=== PATIENT | female | born 1945 | race Caucasian/White ===

== ENCOUNTER 2020-11-14 13:25 | Emergency (ER) | payer MEDICARE, BC ==
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
[2020-11-14 14:24] LABS: Absolute Neutrophil Ct (ANC) 3.28 (1.4-6.9); BASOPHIL % 0.2 % (0.0-0.4); Basophil (Absolute #) 0.01 (0-0.4); Eosinophil % 1.9 % (0.00-5.0); Eosinophil (Absolute #) 0.11 (0-0.5); Hematocrit 40.8 % (35-47); Hemoglobin 12.6 gm/dl (12.0-16.0); Lymphocyte (Absolute #) 1.69 (1.0-4.6); Lymphocytes % 29.5 % (24.0-44.0); Mean Cell Volume 98.1 fl (78-100); Mean Corpuscular Hemoglobin 30.3 pg (26-32); Mean Corpuscular Hgb Concent. 30.9 g/dl (32-36); Mean Platelet Volume 10.2 fl (7.5-11.0); Monocyte (Absolute #) 0.63 (0.0-1.3); Neutrophil % 57.4 % (36.0-66.0); Platelet Count 287 K/mm3 (150-450); Red Blood Count 4.16 M/mm3 (4.1-5.4); Red Cell Distribution Width 14.1 % (11.5-14.0); White Blood Count 5.7 K/mm3 (4.0-10.5)
[2020-11-14 14:26] LABS: Appearance SLIGHTLY CLOUDY (CLEAR); Bilirubin NEGATIVE (NEGATIVE); Blood NEGATIVE Ery/ul (0-5); Epithelial Cells RARE /HPF (FEW); Glucose NEGATIVE (NEGATIVE); Ketones NEGATIVE (NEGATIVE); Leukocyte Esterase NEGATIVE (NEGATIVE); Mucus SLIGHT /HPF (NEGATIVE); Nitrite NEGATIVE (NEGATIVE); Protein,Urine Dip NEGATIVE (Negative); Urobilinogen NEGATIVE mg/dL (0-1)
--- NOTE | 2020-11-14 14:33 | XRAY ---
Indication: Confusion. Multiple contiguous axial images obtained through the head without contrast. Comparison: None Age-appropriate global atrophy and mild/moderate periventricular degenerative micro-ischemia bilaterally. No acute intracranial hemorrhage, abnormal extra-axial fluid collection, or mass effect. Fourth ventricle is midline without hydrocephalus. Bony calvarium intact. Visualized paranasal sinuses and mastoid air cells are clear. Impression: Nonacute senile brain.
[2020-11-14 14:46] LABS: ALKALINE PHOSPHATASE 64 U/L (38-126); ANION GAP 12.4 MEQ/L (5-15); BLOOD UREA NITROGEN 16 mg/dL (7-17); CHLORIDE 103 mmol/L (98-107); Calcium 9.2 mg/dL (8.4-10.2); Carbon Dioxide 26 mmol/L (22-30); Creatinine 1 0.58 mg/dL (0.52-1.04); EST GLOMERULAR FILTRATION RATE > 60.0 ML/MIN; Glucose 97 mg/dL (74-106); Potassium 4.3 mmol/L (3.5-5.1); SGOT/AST 35 U/L (14-36); SGPT/ALT 16 U/L (0-35); SODIUM 137 mmol/L (137-145); Total Protein 7.4 g/dL (6.3-8.2)
[2020-11-14 14:47] LABS: ACETAMINOPHEN < 10 ug/ml (10-30); ETHYL ALCOHOL < 10 mg/dL (0-10); SALICYLATE < 1.0 mg/dL (2-20)
[2020-11-14 14:56] LABS: Amphetamine,Urine NEGATIVE (NEGATIVE); Barbiturate,Urine NEGATIVE (NEGATIVE); Benzodiazepine,Urine NEGATIVE (NEGATIVE); Cocaine,Urine NEGATIVE (NEGATIVE); Methadone,Urine NEGATIVE (NEGATIVE); Opiate,Urine NEGATIVE (NEGATIVE); PCP,Urine NEGATIVE (NEGATIVE); THC,Urine NEGATIVE (NEGATIVE)
[2020-11-14 15:02] VITALS: O2SAT 98
[2020-11-14 17:10] VITALS: BP 127/66; PULSE 58
--- NOTE | 2020-11-15 14:09 | XRAY ---
Indication: Cough and confusion. Comparison: None Portable chest demonstrates minimal left base fibrosis/scarring and tiny right base calcified granuloma. Remaining heart and lungs unremarkable. Bony thorax intact with mild osteopenia and degenerative changes. Impression: Nonacute chest with chronic features.
== END 2020-11-14 19:08 | disposition home or self-care (01) ==
LOC: ED 13:25
DX: R45.6 Violent behavior (principal); R46.89 Other symptoms and signs involving appearance and behavior
CPT/HCPCS: 36000; 36415; 70450; 71045; 80053; 80307; 81001; 82140; 85025; 93005; 99284; G0480

== ENCOUNTER 2021-03-01 23:24 | Emergency (ER) | payer MEDICARE, BC ==
[2021-03-02 00:01] LABS: Absolute Neutrophil Ct (ANC) 6.98 (1.4-6.9); BASOPHIL % 0.2 % (0.0-0.4); Basophil (Absolute #) 0.02 (0-0.4); Eosinophil % 1.2 % (0.00-5.0); Eosinophil (Absolute #) 0.12 (0-0.5); Hematocrit 40.1 % (35-47); Hemoglobin 12.6 gm/dl (12.0-16.0); Lymphocyte (Absolute #) 1.92 (1.0-4.6); Lymphocytes % 19.5 % (24.0-44.0); Mean Corpuscular Hemoglobin 30.8 pg (26-32); Mean Corpuscular Hgb Concent. 31.4 g/dl (32-36); Monocyte (Absolute #) 0.83 (0.0-1.3); Monocytes % 8.4 % (0.0-12.0); Neutrophil % 70.7 % (36.0-66.0); Platelet Count 258 K/mm3 (150-450); Red Blood Count 4.09 M/mm3 (4.1-5.4); Red Cell Distribution Width 13.9 % (11.5-14.0); White Blood Count 9.9 K/mm3 (4.0-10.5)
[2021-03-02 00:09] VITALS: O2SAT 98
[2021-03-02 00:10] LABS: INR 0.97 (0.8-3.0); PROTIME 11.5 SECONDS (9.4-12.5)
[2021-03-02 00:13] LABS: PTT 35.1 SECONDS (25.1-36.5)
[2021-03-02 00:14] LABS: ALBUMIN 4.1 g/dL (3.5-5.0); ALKALINE PHOSPHATASE 88 U/L (38-126); ANION GAP 10.9 MEQ/L (5-15); BLOOD UREA NITROGEN 19 mg/dL (7-17); CHLORIDE 105 mmol/L (98-107); Carbon Dioxide 29 mmol/L (22-30); EST GLOMERULAR FILTRATION RATE > 60.0 ML/MIN; Glucose 114 mg/dL (74-106); Potassium 4.2 mmol/L (3.5-5.1); SGOT/AST 30 U/L (14-36); SGPT/ALT 18 U/L (0-35); SODIUM 140 mmol/L (137-145); Total Protein 7.5 g/dL (6.3-8.2)
--- NOTE | 2021-03-02 00:32 | ERPHSYRPT ---
- History of Present Illness Time Seen by Provider: 03/01/21 23:27 Source: patient, family Exam Limitations: clinical condition Physician History: 76 years old female not on any medications is brought in the ER with chief complaint of altered mental status/slurring of speech noticed by granddaughter at 8 PM when she called her. Last well-known is around 4 PM. Patient has been reported she was talking to self before her granddaughter called. Patient walked in the ER, awake alert but confused and following only few commands. She has some bruise on the right forehead but no known history of fall reported. Patient is moving all 4 extremities. History is limited. Time of Onset/Last Time Seen Normal: 1600 Timing/Duration: hour(s), constant, worse Severity: moderate Character of Deficits: impaired speech Baseline/Normal Cognition: alert oriented x 3 Current Cognition: alert but confused Associated Symptoms: slurred speech, No seizures Allergies/Adverse Reactions: No Known Drug Allergies Allergy (Unverified 03/01/21 23:42) Home Medications: No Reportable Medications [No Reported Medications] 11/14/20 [History] Hx Influenza Vaccination/Date Given: No Hx Pneumococcal Vaccination/Date Given: No Travel Risk - Vaccine Status Have you recieved a Covid-19 vaccination: No - Review of Systems All Other Systems: Unable due to condition - Past Medical History Pertinent Past Medical History: No Other Medical History: skin ca 2020 - Past Surgical History Past Surgical History: No Other Surgical History: skin ca removal - Social History Smoking Status: Never smoker Exposure to second hand smoke: No Drug Use: none Patient Lives Alone: No - Nursing Vital Signs Nursing Vital Signs: Initial Vital Signs Pulse Rate 66 03/01/21 23:24 Respiratory Rate 18 03/01/21 23:24 Blood Pressure 164/85 03/01/21 23:24 O2 Sat by Pulse Oximetry 98 03/01/21 23:24 Pain Scale Pain Intensity 0 - [place] Coma Scale Best Eye Response ([place]): (4) open spontaneously Best Verbal Response ([place]): (4) confused conversation Best Motor Response ([place]): (6) obeys commands [place] Total: 14 - Physical Exam General Appearance: no apparent distress, alert Eye Exam: bilateral eye: normal inspection, PERRL, abnormal EOM Ears, Nose, Throat Exam: normal ENT inspection, TMs normal, pharynx normal, moist mucous membranes Neck Exam: normal inspection, non-tender, supple, full range of motion Respiratory: normal breath sounds, lungs clear Cardiovascular: regular rate/rhythm, normal heart sounds Gastrointestinal: soft, normal bowel sounds Extremity Exam: normal range of motion Mental Status: alert, disoriented to person, disoriented to place, 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 Exam: normal hearing, PERRL, No normal speech, No facial asymmetry DTR: bicep (R): 3+, bicep (L): 2+, knee (R): 3+, knee (L): 2+ Skin Exam: normal color SpO2 Interpretation: normal SpO2: 98 O2 Delivery: Room Air - Course EKG Interpreted by Me: RATE (61), Sinus Rhythm, NORMAL AXIS, NORMAL INTERVALS, NORMAL QRS Ordered Tests: Medication Summary Discontinued Medications Generic Name Dose Route Start Last Admin Trade Name Randyq PRN Reason Stop Dose Admin Sodium Chloride 1,000 mls @ 100 mls/hr 03/02/21 01:30 03/02/21 01:32 Sodium Chloride 0.9% 1000 Ml IV 04/01/21 01:29 100 mls/hr .Q10H PHAN Administration Sodium Chloride Confirm 03/02/21 01:31 Sodium Chloride 0.9% 1000 Ml Administered 03/02/21 01:32 Dose 1,000 mls @ ud .ROUTE .[facility] Lab/Rad Data: Laboratory Result Diagrams 03/01/21 23:58 03/01/21 23:58 Laboratory Results 03/02/21 03/01/21 03/01/21 Range/Units 00:10 23:58 23:58 WBC (4.0-10.5) K/mm3 RBC (4.1-5.4) M/mm3 Hgb (12.0-16.0) gm/dl Hct (35-47) % MCV (78-100) fl MCH (26-32) pg MCHC (32-36) g/dl RDW (11.5-14.0) % Plt Count (150-450) K/mm3 MPV (7.5-11.0) fl Gran % (36.0-66.0) % Eos # (Auto) (0-0.5) Absolute Lymphs (auto) (1.0-4.6) Absolute Monos (auto) (0.0-1.3) Lymphocytes % (24.0-44.0) % Monocytes % (0.0-12.0) % Eosinophils % (0.00-5.0) % Basophils % (0.0-0.4) % Absolute Granulocytes (1.4-6.9) Basophils # (0-0.4) PT 11.5 (9.4-12.5) SECONDS INR 0.97 (0.8-3.0) APTT 35.1 (25.1-36.5) SECONDS Sodium (137-145) mmol/L Potassium (3.5-5.1) mmol/L Chloride (98-107) mmol/L Carbon Dioxide (22-30) mmol/L Anion Gap (5-15) MEQ/L BUN (7-17) mg/dL Creatinine (0.52-1.04) mg/dL Estimated GFR ML/MIN Glucose (74-106) mg/dL POC Glucometer (74 to 106) mg/dL Calcium (8.4-10.2) mg/dL Total Bilirubin (0.2-1.3) mg/dL AST (14-36) U/L ALT (0-35) U/L Alkaline Phosphatase (38-126) U/L Troponin I < 0.012 (0.000-0.034) ng/mL Serum Total Protein (6.3-8.2) g/dL Albumin (3.5-5.0) g/dL Urine Color YELLOW (YELLOW) Urine Appearance SLIGHTLY CLOUDY (CLEAR) Urine pH 5.0 (5-6) Ur Specific [place] 1.027 (1.005-1.025) Urine Protein NEGATIVE (Negative) Urine Ketones NEGATIVE (NEGATIVE) Urine Blood NEGATIVE (0-5) Shaji/ul Urine Nitrite NEGATIVE (NEGATIVE) Urine Bilirubin NEGATIVE (NEGATIVE) Urine Urobilinogen NEGATIVE (0-1) mg/dL Ur Leukocyte Esterase NEGATIVE (NEGATIVE) Urine WBC (Auto) 0-2 (0-5) /HPF Urine RBC (Auto) 3-5 (0-2) /HPF U Epithel Cells (Auto) RARE (FEW) /HPF Urine Bacteria (Auto) NONE SEEN (NEGATIVE) /HPF Urine Mucus (Auto) MANY (NEGATIVE) /HPF Urine Culture Reflexed NO (NO) Urine Glucose NEGATIVE (NEGATIVE) mg/dL 03/01/21 03/01/2121 Range/Units 23:58 23:58 23:40 WBC 9.9 (4.0-10.5) K/mm3 RBC 4.09 L (4.1-5.4) M/mm3 Hgb 12.6 (12.0-16.0) gm/dl Hct 40.1 (35-47) % MCV 98.0 (78-100) fl MCH 30.8 (26-32) pg MCHC 31.4 L (32-36) g/dl RDW 13.9 (11.5-14.0) % Plt Count 258 (150-450) K/mm3 MPV 10.0 (7.5-11.0) fl Gran % 70.7 H (36.0-66.0) % Eos # (Auto) 0.12 (0-0.5) Absolute Lymphs (auto) 1.92 (1.0-4.6) Absolute Monos (auto) 0.83 (0.0-1.3) Lymphocytes % 19.5 L (24.0-44.0) % Monocytes % 8.4 (0.0-12.0) % Eosinophils % 1.2 (0.00-5.0) % Basophils % 0.2 (0.0-0.4) % Absolute Granulocytes 6.98 H (1.4-6.9) Basophils # 0.02 (0-0.4) PT (9.4-12.5) SECONDS INR (0.8-3.0) APTT (25.1-36.5) SECONDS Sodium 140 (137-145) mmol/L Potassium 4.2 (3.5-5.1) mmol/L Chloride 105 (98-107) mmol/L Carbon Dioxide 29 (22-30) mmol/L Anion Gap 10.9 (5-15) MEQ/L BUN 19 H (7-17) mg/dL Creatinine 0.60 (0.52-1.04) mg/dL Estimated GFR > 60.0 ML/MIN Glucose 114 H (74-106) mg/dL POC Glucometer 110 H (74 to 106) mg/dL Calcium 9.0 (8.4-10.2) mg/dL Total Bilirubin 0.40 (0.2-1.3) mg/dL AST 30 (14-36) U/L ALT 18 (0-35) U/L Alkaline Phosphatase 88 (38-126) U/L Troponin I (0.000-0.034) ng/mL Serum Total Protein 7.5 (6.3-8.2) g/dL Albumin 4.1 (3.5-5.0) g/dL Urine Color (YELLOW) Urine Appearance (CLEAR) Urine pH (5-6) Ur Specific [place] (1.005-1.025) Urine Protein (Negative) Urine Ketones (NEGATIVE) Urine Blood (0-5) Shaji/ul Urine Nitrite (NEGATIVE) Urine Bilirubin (NEGATIVE) Urine Urobilinogen (0-1) mg/dL Ur Leukocyte Esterase (NEGATIVE) Urine WBC (Auto) (0-5) /HPF Urine RBC (Auto) (0-2) /HPF U Epithel Cells (Auto) (FEW) /HPF Urine Bacteria (Auto) (NEGATIVE) /HPF Urine Mucus (Auto) (NEGATIVE) /HPF Urine Culture Reflexed (NO) Urine Glucose (NEGATIVE) mg/dL - Progress Progress: unchanged Progress Note: 03/02/21 00:40 76 years old is evaluated for confusion, difficulties speech. CT head showed subarachnoid bleed and intraparenchymal bleed the left parietal lobe with surrounding edema and without any midline shift. [facility] is called for transfer. 03/02/21 02:04 Patient remained stable, awake alert and blood pressure improved to [address] Bunn neurosurgery, reviewed history, exam and CT findings, patient is accepted for transfer. Plan discussed with family who understand and agree with it. 03/02/21 02:[address] Other ( [facility]) Counseled pt/family regarding: lab results, diagnosis, rad results - Departure Departure Disposition: Transfer Clinical Impression: Intracranial hemorrhage Condition: Serious Critical Care Time: Yes Critical Care Time(excluding separately billable procedures): Critical 30-74 mins Referrals: KING SCHROEDER MD [Primary Care Provider] -
[2021-03-02 00:35] LABS: Appearance SLIGHTLY CLOUDY (CLEAR); Bilirubin NEGATIVE (NEGATIVE); Blood NEGATIVE Ery/ul (0-5); Epithelial Cells RARE /HPF (FEW); Glucose NEGATIVE (NEGATIVE); Ketones NEGATIVE (NEGATIVE); Leukocyte Esterase NEGATIVE (NEGATIVE); Mucus MANY /HPF (NEGATIVE); Nitrite NEGATIVE (NEGATIVE); Protein,Urine Dip NEGATIVE (Negative); Specific Gravity 1.027 (1.005-1.025); Urobilinogen NEGATIVE mg/dL (0-1); WBC 0-2 /HPF (0-5)
[2021-03-02 00:36] LABS: Bacteria NONE SEEN /HPF (NEGATIVE)
[2021-03-02] MEDS ORDERED: Sodium Chloride 0.9% 1000 ML 1,000 ML IV SCH (01:30)
[2021-03-02] MEDS ORDERED: Sodium Chloride 0.9% 1000 ML 1,000 ML ONE (01:31)
[2021-03-02 02:07] VITALS: BP 175/70; PULSE 63
--- NOTE | 2021-03-02 06:53 | XRAY ---
Indication: Stroke. Multiple contiguous axial images obtained through the head without contrast. Comparison: November 14, 2020 Again age-appropriate global atrophy and moderate periventricular degenerative micro-ischemia. New large left temporoparietal acute parenchymal hemorrhage measuring at least 3.9 x 2.2 x 3.7 cm. Additional new small subarachnoid hemorrhage seen along the left sylvian fissure. No significant mass effect/midline shift. Fourth ventricle is midline without hydrocephalus. Bony calvarium intact. Visualized paranasal sinuses and mastoid air cells are clear. Impression: 1. New large left temporoparietal acute parenchymal hemorrhage and small subarachnoid acute hemorrhage. 2. Atrophy and degenerative micro-ischemia within normal limits for patient's age. Comment: Preliminary interpretation made by [facility]. No critical discrepancy.
== END 2021-03-02 03:00 | disposition short-term general hospital (02) ==
LOC: ED 23:24
DX: I62.9 Nontraumatic intracranial hemorrhage, unspecified (principal); R41.82 Altered mental status, unspecified; S00.83XA Contusion of other part of head, initial encounter; R47.81 Slurred speech
CPT/HCPCS: 36000; 36415; 51702; 70450; 80053; 81001; 82947; 84484; 85025; 85610; 85730; 93005; 93041; 96360; 96361; 99285; 99291

== ENCOUNTER 2021-06-12 03:05 | Observation (INO) | payer MEDICARE, BC ==
[2021-06-12] MEDS ORDERED: Sodium Chloride 0.9% 1000 ML 1,000 ML IV SCH (03:15)
[2021-06-12 03:28] LABS: Absolute Neutrophil Ct (ANC) 4.28 (1.4-6.9); Basophil (Absolute #) 0.04 (0-0.4); Eosinophil % 2.5 % (0.00-5.0); Eosinophil (Absolute #) 0.19 (0-0.5); Hematocrit 35.2 % (35-47); Hemoglobin 10.8 gm/dl (12.0-16.0); Lymphocyte (Absolute #) 2.45 (1.0-4.6); Lymphocytes % 31.7 % (24.0-44.0); Mean Cell Volume 100.6 fl (78-100); Mean Corpuscular Hemoglobin 30.9 pg (26-32); Mean Corpuscular Hgb Concent. 30.7 g/dl (32-36); Mean Platelet Volume 9.7 fl (7.5-11.0); Monocyte (Absolute #) 0.78 (0.0-1.3); Monocytes % 10.1 % (0.0-12.0); Neutrophil % 55.2 % (36.0-66.0); Platelet Count 290 K/mm3 (150-450); Red Cell Distribution Width 14.9 % (11.5-14.0); White Blood Count 7.7 K/mm3 (4.0-10.5)
[2021-06-12 03:46] LABS: ALBUMIN 3.8 g/dL (3.5-5.0); ANION GAP 10.8 MEQ/L (5-15); BILIRUBIN,TOTAL 0.5 mg/dL (0.2-1.3); Calcium 9.4 mg/dL (8.4-10.2); Creatinine 1 1.37 mg/dL (0.52-1.04); EST GLOMERULAR FILTRATION RATE 39.6 ML/MIN; Potassium 4.1 mmol/L (3.5-5.1); Total Protein 6.7 g/dL (6.3-8.2)
[2021-06-12] MEDS ORDERED: Sodium Chloride 0.9% 1000 ML 1,000 ML ONE (04:21)
--- NOTE | 2021-06-12 04:39 | ERPHSYRPT ---
- History of Present Illness Time Seen by Provider: 06/12/21 03:30 Source: patient Exam Limitations: no limitations Patient Subjective Stated Complaint: per ems, pt has been increasingly confused at home, has been combative with family. family states that pt has been out of some of her medications for a few days. family was unable to tell ems which medications pt was out of. Triage Nursing Assessment: pt awake and alert. not oriented, to time, place, or person. pt arrive per ambulance and tranfers to stretcher with complete assist of 3. respirations nonlabored with lungs cta. skin warm and dry. pupils equal and reactive. bilat upper and lower extr strength equal. pt does not follow commands well. Physician History: Patient is a 76-year-old female presents to our ED via EMS for evaluation of combativeness. EMS reports patient has been off of her medication for approximately 3 days. She has been off of senna Norvasc and amantadine. She has been off of medications as her primary care provider is out of town. Family also reports patient has a history of head bleed. Although no reports of trauma. No fever. No chest pain or shortness of breath reported. Patient's symptoms are mild to moderate in intensity. No specific worsening or improving factors. Patient has dementia and is a poor historian. She is unable to provide significant information towards this HPI Timing/Duration: today Severity: moderate Modifying Factors: Improves With: nothing Associated Symptoms: denies symptoms Allergies/Adverse Reactions: No Known Drug Allergies Allergy (Unverified 03/01/21 23:42) Home Medications: Amantadine HCl [Amantadine] 100 mg PO BID 06/12/21 [History] Amlodipine Besylate [Norvasc] 10 mg PO DAILY 06/12/21 [History] Sennosides [Senna] 8.6 mg PO DAILY 06/12/21 [History] Hx Tetanus, Diphtheria Vaccination/Date Given: No (unsure) Hx Influenza Vaccination/Date Given: No Hx Pneumococcal Vaccination/Date Given: No Travel Risk - International Travel Have you traveled outside of the country in past 3 weeks: No - Coronavirus Screening Are you exhibiting any of the following symptoms?: No Close contact with a COVID-19 positive Pt in past 14-21 Days: No - Vaccine Status Have you recieved a Covid-19 vaccination: No - Review of Systems All Other Systems: Unable due to condition - Past Medical History Pertinent Past Medical History: No Neurological History: Dementia Other Medical History: skin ca 2020, prolapsed uterus. hx brain bleed in march - Past Surgical History Past Surgical History: No Other Surgical History: skin ca removal - Social History Smoking Status: Never smoker Exposure to second hand smoke: No Drug Use: none Patient Lives Alone: No - Nursing Vital Signs Nursing Vital Signs: Initial Vital Signs Temperature 97.6 F 06/12/21 03:21 Pulse Rate 54 L 06/12/21 03:21 Respiratory Rate 16 06/12/21 03:21 Blood Pressure 126/45 06/12/21 03:21 O2 Sat by Pulse Oximetry 100 06/12/21 03:21 Pain Scale Pain Intensity 0 - Physical Exam General Appearance: no apparent distress, alert Eye Exam: PERRL/EOMI, eyes nml inspection Ears, Nose, Throat Exam: normal ENT inspection, TMs normal, pharynx normal, moist mucous membranes Neck Exam: normal inspection, non-tender, supple, full range of motion Respiratory Exam: normal breath sounds, lungs clear, airway intact, No respiratory distress Cardiovascular Exam: regular rate/rhythm, normal heart sounds, normal peripheral pulses Gastrointestinal/Abdomen Exam: soft, normal bowel sounds, No tenderness, No mass Back Exam: normal inspection, normal range of motion, No CVA tenderness, No vertebral tenderness Extremity Exam: normal inspection, normal range of motion, pelvis stable Neurologic Exam: alert, oriented x 3, cooperative, normal mood/affect, sensation nml, No motor deficits Skin Exam: normal color, warm, dry, No rash Lymphatic Exam: No adenopathy SpO2 Interpretation: normal SpO2: 100 O2 Delivery: Room Air - Course Nursing assessment & vital signs reviewed: Yes EKG Interpreted by Me: RATE (65), Sinus Rhythm, Left Bundle Branch Block - CT Exams Head CT Interpretation: Tele-radiologist Report (No acute intracranial abnormality. Generalized brain volume loss. Left temporal encephalomalacia with regional lateral ventricular ex vacuo dilation. No mass-effect or midline shift. No acute intracranial hemorrhage. No fracture. Patchy white matter hypodensities are nonspecific but may be seen in s) Ordered Tests: Active Orders 24 hr Category Date Time Status EKG-ER Only STAT Care 06/12/21 03:08 Active IV Insertion STAT Care 06/12/21 03:08 Active HEAD WITHOUT CONTRAST [CT] Stat Exams 06/12/21 03:31 Taken CBC W DIFF Stat Lab 06/12/21 03:23 Completed CMP Stat Lab 06/12/21 03:23 Completed CULTURE,URINE Stat Lab 06/12/21 04:58 Received TROPONIN Q3H Lab 06/12/21 03:23 Completed TROPONIN Q3H Lab 06/12/21 05:45 Completed TROPONIN Q3H Lab 06/12/21 09:15 Ordered TROPONIN Q3H Lab 06/12/21 12:15 Ordered TROPONIN Q3H Lab 06/12/21 15:15 Ordered UA W/RFX UR CULTURE Stat Lab 06/12/21 04:58 Completed Transfer Order Routine Transfer 06/12/21 Ordered Medication Summary Generic Name Dose Route Start Last Admin Trade Name Freq PRN Reason Stop Dose Admin Sodium Chloride 1,000 mls @ 100 mls/hr 06/12/21 03:15 06/12/21 04:24 Sodium Chloride 0.9% 1000 Ml IV 07/12/21 03:14 100 mls/hr .Q10H PHAN Administration Discontinued Medications Generic Name Dose Route Start Last Admin Trade Name Freq PRN Reason Stop Dose Admin Aspirin 324 mg 06/12/21 05:17 06/12/21 05:49 Aspirin 81 Mg Tab.Chew PO 06/12/21 05:18 324 mg STAT ONE Administration Aspirin Confirm 06/12/21 05:48 Aspirin 81 Mg Tab.Chew Administered 06/12/21 05:49 Dose 324 mg .ROUTE .STK-MED ONE Ceftriaxone Sodium/Dextrose 1 g in 50 mls @ 100 mls/hr 06/12/21 05:51 06/12/21 06:08 Rocephin 1 Gm-D5w 50 Ml Bag IV 06/12/21 06:20 100 ml/hr STAT STA 100 mls/hr Administration Ceftriaxone Sodium/Dextrose Confirm 06/12/21 05:58 Rocephin 1 Gm-D5w 50 Ml Bag Administered 06/12/21 05:59 Dose 1 g in 50 mls @ ud IV .STK-MED ONE Lab/Rad Data: Laboratory Result Diagrams 06/12/21 03:23 06/12/21 03:23 Laboratory Results 06/12/21 06/12/21 06/12/21 Range/Units 05:55 05:45 04:58 WBC (4.0-10.5) K/mm3 RBC (4.1-5.4) M/mm3 Hgb (12.0-16.0) gm/dl Hct (35-47) % MCV (78-100) fl MCH (26-32) pg MCHC (32-36) g/dl RDW (11.5-14.0) % Plt Count (150-450) K/mm3 MPV (7.5-11.0) fl Gran % (36.0-66.0) % Eos # (Auto) (0-0.5) Absolute Lymphs (auto) (1.0-4.6) Absolute Monos (auto) (0.0-1.3) Lymphocytes % (24.0-44.0) % Monocytes % (0.0-12.0) % Eosinophils % (0.00-5.0) % Basophils % (0.0-0.4) % Absolute Granulocytes (1.4-6.9) Basophils # (0-0.4) Sodium (137-145) mmol/L Potassium (3.5-5.1) mmol/L Chloride (98-107) mmol/L Carbon Dioxide (22-30) mmol/L Anion Gap (5-15) MEQ/L BUN (7-17) mg/dL Creatinine (0.52-1.04) mg/dL Estimated GFR ML/MIN Glucose (74-106) mg/dL Calcium (8.4-10.2) mg/dL Total Bilirubin (0.2-1.3) mg/dL AST (14-36) U/L ALT (0-35) U/L Alkaline Phosphatase (38-126) U/L Troponin I < 0.012 (0.000-0.034) ng/mL Serum Total Protein (6.3-8.2) g/dL Albumin (3.5-5.0) g/dL Urine Color YELLOW (YELLOW) Urine Appearance SLIGHTLY CLOUDY (CLEAR) Urine pH 5.0 (5-6) Ur Specific [place] 1.020 (1.005-1.025) Urine Protein NEGATIVE (Negative) Urine Ketones NEGATIVE (NEGATIVE) Urine Blood NEGATIVE (0-5) Shaji/ul Urine Nitrite POSITIVE (NEGATIVE) Urine Bilirubin NEGATIVE (NEGATIVE) Urine Urobilinogen NEGATIVE (0-1) mg/dL Ur Leukocyte Esterase MODERATE (NEGATIVE) Urine WBC (Auto) 26-50 (0-5) /HPF Urine RBC (Auto) 0-2 (0-2) /HPF U Epithel Cells (Auto) RARE (FEW) /HPF Urine Bacteria (Auto) RARE (NEGATIVE) /HPF Urine Mucus (Auto) SLIGHT (NEGATIVE) /HPF Urine Culture Reflexed YES (NO) Urine Glucose NEGATIVE (NEGATIVE) mg/dL Influenza Type A Ag NEGATIVE (NEGATIVE) Influenza Type B Ag NEGATIVE (NEGATIVE) RSV (PCR) NEGATIVE (Negative) SARS-CoV-2 (PCR) NEGATIVE (NEGATIVE) 06/12/21 06/12/21 06/12/21 Range/Units 03:23 03:23 03:23 WBC 7.7 (4.0-10.5) K/mm3 RBC 3.50 L (4.1-5.4) M/mm3 Hgb 10.8 L (12.0-16.0) gm/dl Hct 35.2 (35-47) % MCV 100.6 H (78-100) fl MCH 30.9 (26-32) pg MCHC 30.7 L (32-36) g/dl RDW 14.9 H (11.5-14.0) % Plt Count 290 (150-450) K/mm3 MPV 9.7 (7.5-11.0) fl Gran % 55.2 (36.0-66.0) % Eos # (Auto) 0.19 (0-0.5) Absolute Lymphs (auto) 2.45 (1.0-4.6) Absolute Monos (auto) 0.78 (0.0-1.3) Lymphocytes % 31.7 (24.0-44.0) % Monocytes % 10.1 (0.0-12.0) % Eosinophils % 2.5 (0.00-5.0) % Basophils % 0.5 (0.0-0.4) % Absolute Granulocytes 4.28 (1.4-6.9) Basophils # 0.04 (0-0.4) Sodium 139 (137-145) mmol/L Potassium 4.1 (3.5-5.1) mmol/L Chloride 103 (98-107) mmol/L Carbon Dioxide 29 (22-30) mmol/L Anion Gap 10.8 (5-15) MEQ/L BUN 29 H (7-17) mg/dL Creatinine 1.37 H (0.52-1.04) mg/dL Estimated GFR 39.6 ML/MIN Glucose 84 (74-106) mg/dL Calcium 9.4 (8.4-10.2) mg/dL Total Bilirubin 0.50 (0.2-1.3) mg/dL AST 22 (14-36) U/L ALT 18 (0-35) U/L Alkaline Phosphatase 68 (38-126) U/L Troponin I < 0.012 (0.000-0.034) ng/mL Serum Total Protein 6.7 (6.3-8.2) g/dL Albumin 3.8 (3.5-5.0) g/dL Urine Color (YELLOW) Urine Appearance (CLEAR) Urine pH (5-6) Ur Specific [place] (1.005-1.025) Urine Protein (Negative) Urine Ketones (NEGATIVE) Urine Blood (0-5) Shaji/ul Urine Nitrite (NEGATIVE) Urine Bilirubin (NEGATIVE) Urine Urobilinogen (0-1) mg/dL Ur Leukocyte Esterase (NEGATIVE) Urine WBC (Auto) (0-5) /HPF Urine RBC (Auto) (0-2) /HPF U Epithel Cells (Auto) (FEW) /HPF Urine Bacteria (Auto) (NEGATIVE) /HPF Urine Mucus (Auto) (NEGATIVE) /HPF Urine Culture Reflexed (NO) Urine Glucose (NEGATIVE) mg/dL Influenza Type A Ag (NEGATIVE) Influenza Type B Ag (NEGATIVE) RSV (PCR) (Negative) SARS-CoV-2 (PCR) (NEGATIVE) - Progress Progress: improved Progress Note: Patient reassessed. She is well. Patient calm and cooperative. Patient is not taking her senna. However I do not believe this is contributing to her combativeness. Patient has not taken her Norvasc. Her blood pressure while in our ED appears to be normal. Blood pressure recorded is 120/53. Patient also has not taken her amantadine. This is a medication typically used for Parkinson's disease. It is unclear whether this would be causing patient's aggressive behavior. We are currently waiting for urinalysis and EKG to be completed for final disposition. At this point the work-up reveals a mild dehydration slight elevated creatinine. Patient also has a megaloblastic anemia. RN has spoken to patient's daughter. If upon completion no indication for admission. Daughter states that she would take patient home. Patient's primary care provider is back in town. They will obtain her medications in the morning. 06/12/21 04:50 RN reports that patient has an unsteady gait. Per daughter this is not patient's baseline. The lack of patient's home medications does not explain this finding. We will admit for monitoring or further evaluation of altered mental status/unsteady gait. The onset of her symptoms is not clear. Patient would not be a candidate for tPA. 06/12/21 05:18 UA reveals urinary tract infection. A gram Rocephin ordered. Case discussed with who accepts admission to observation. Patient will be admitted as she is not functioning at her baseline and her gait is unsteady. 06/12/21 05:52 COVID test negative. Patient will be admitted to Dr. Carroll service 06/12/21 06:[address] Solange Will see patient in: hospital (observation) Counseled pt/family regarding: lab results, diagnosis, rad results - Departure Departure Disposition: Home Clinical Impression: Megaloblastic anemia, Combative behavior, Dementia, Dehydration, Elevated serum creatinine, Left bundle branch block, Unsteady gait, UTI (urinary tract infection), Noncompliance with medication regimen Condition: Stable Critical Care Time: No Referrals: KING SCHROEDER MD [Primary Care Provider] - Follow up/PCP as directed
[2021-06-12] MEDS ORDERED: BABY ASPIRIN 81 MG CHEW PO ONE (05:17)
[2021-06-12 05:46] LABS: Appearance SLIGHTLY CLOUDY (CLEAR); Bacteria RARE /HPF (NEGATIVE); Bilirubin NEGATIVE (NEGATIVE); Blood NEGATIVE Ery/ul (0-5); Epithelial Cells RARE /HPF (FEW); Glucose NEGATIVE (NEGATIVE); Ketones NEGATIVE (NEGATIVE); Leukocyte Esterase MODERATE (NEGATIVE); Mucus SLIGHT /HPF (NEGATIVE); Nitrite POSITIVE (NEGATIVE); Protein,Urine Dip NEGATIVE (Negative); RBC 0-2 /HPF (0-2); Urobilinogen NEGATIVE mg/dL (0-1); WBC 26-50 /HPF (0-5)
[2021-06-12] MEDS ORDERED: BABY ASPIRIN 81 MG CHEW ONE (05:48)
[2021-06-12] MEDS ORDERED: ROCEPHIN 1 Gm-D5w 50 ml Bag** 1 G/50 ML IVPB IV STA (05:51)
[2021-06-12] MEDS ORDERED: ROCEPHIN 1 Gm-D5w 50 ml Bag** 1 G/50 ML IVPB IV ONE (05:58)
[2021-06-12 06:35] LABS: INFLUENZA A NEGATIVE (NEGATIVE); INFLUENZA B NEGATIVE (NEGATIVE); RESPIRATORY SYNCTIAL VIRUS NEGATIVE (Negative); SARS-CoV-2 Xpert Express NEGATIVE (NEGATIVE)
[2021-06-12] MEDS ORDERED: TYLENOL 325 MG PO PRN (08:02)
[2021-06-12] MEDS ORDERED: Zofran 4 MG/2 ML VIAL IV PRN (08:02)
--- NOTE | 2021-06-12 09:22 | XRAY ---
Indication: Acute mental status change. History dementia. Multiple contiguous axial images obtained through the head without contrast. Comparison: March 02, 2021. Again age-appropriate global atrophy and moderate periventricular degenerative micro-ischemia bilaterally. Previous large left temporoparietal parenchymal hemorrhage has resolved with now remnant encephalomalacia. No acute intracranial hemorrhage, abnormal extra-axial fluid collection, or mass effect. Fourth ventricle is midline without hydrocephalus. Bony calvarium intact. Visualized paranasal sinuses and mastoid air cells are clear. Impression: Continued nonacute senile brain with new left temporoparietal encephalomalacia. Comment: Preliminary interpretation made by [facility]. No critical discrepancy.
[2021-06-12] MEDS ORDERED: MEDICATION INTERVENTION PO SCH (12:00)
[2021-06-12] MEDS: NORVASC 5 MG PO SCH (13:38)
[2021-06-12] MEDS: Colace 100 MG PO SCH ×2 (13:38→21:07)
[2021-06-12] MEDS: Vitamin B-12 500 MCG PO SCH (13:39)
[2021-06-12] MEDS: Zestril 20 MG PO SCH (13:39)
[2021-06-12] MEDS: SENOKOT 8.6 MG PO SCH (21:07)
--- NOTE | 2021-06-12 21:30 | PCM.HP ---
History of Present Illness - Chief Complaint Chief Complaint: Altered Mental Status History of Present Illness: is a 76 year old female.has been off of her medication for approximately 3 days. She has been off of senna Norvasc and amantadine. She has been off of medications as her primary care provider is out of town. Family also reports patient has a history of head bleed. Although no reports of trauma. No fever. No chest pain or shortness of breath reported. Patient's symptoms are mild to moderate in intensity. No specific worsening or improving factors. Patient has dementia and is a poor historian. - Review of Systems Constitutional: Lethargy Neurological: Irritability, Lethargy All Other Systems: Unable due to condition, Unable due to dementia Medications & Allergies Home Medications: Home Medication List Acetaminophen 325 mg [Tylenol 325 mg] 650 mg PO Q4H PRN PRN 06/12/21 [History Confirmed 06/12/21] Amantadine HCl [Amantadine] 100 mg PO BID 06/12/21 [History Confirmed 06/12/21] Amlodipine Besylate [Norvasc] 10 mg PO DAILY 06/12/21 [History Confirmed 06/12/21] Cyanocobalamin (Vitamin B-12) [Vitamin B-12] 1,000 mcg PO DAILY 06/12/21 [History Confirmed 06/12/21] Docusate Sodium [Colace] 100 mg PO BID 06/12/21 [History Confirmed 06/12/21] Lisinopril 20 mg [Zestril 20 MG] 20 mg PO DAILY 06/12/21 [History Confirmed 06/12/21] Sennosides [Senna] 8.6 mg PO HS 06/12/21 [History Confirmed 06/12/21] Allergies/Adverse Reactions: Allergies Allergy/AdvReac Type Severity Reaction Status Date / Time No Known Drug Allergies Allergy Unverified 03/01/21 23:42 - Past Medical History Past Medical History: Yes Neurological History: Dementia ENT History: No Pertinent History Cardiac History: Hypertension Respiratory History: No Pertinent History Endocrine Medical History: No Pertinent History Musculoskelatal History: No Pertinent History GI Medical History: No Pertinent History History: No Pertinent History Pyscho-Social History: No Pertinent History Reproductive Disorders: No Pertinent History Comment: skin ca 2020, prolapsed uterus. hx brain bleed in march - Past Surgical History Past Surgical History: No Neuro Surgical History: No Pertinent History Cardiac History: No Pertinent History Respiratory Surgery: No Pertinent History GI Surgical History: No Pertinent History Genitourinary Surgical Hx: No Pertinent History Musculskeletal Surgical Hx: No Pertinent History Female Surgical History: No Pertinent History Other Surgical History: skin ca removal - Social History Smoking Status: Unknown if ever smoked Exposure to second hand smoke: No Alcohol: None Drug Use: none - Physical Exam Vital Signs: Vital Signs - 24 hr Temp Pulse Resp BP Pulse Ox 06/12/21 19:59 97.8 F 72 19 136/70 100 06/12/21 17:00 76 15 99 06/12/21 13:34 97.8 F 72 19 118/47 99 06/12/21 12:00 97.1 F 78 17 142/72 92 L 06/12/21 08:34 97.9 F 71 16 142/72 100 06/12/21 07:33 79 18 140/76 99 06/12/21 07:07 100 06/12/21 06:00 60 17 136/63 99 06/12/21 05:00 56 L 20 120/62 99 06/12/21 04:07 64 16 120/53 96 06/12/21 03:21 97.6 F 54 L 16 126/45 100 General Appearance: mild distress Neurologic Exam: disoriented Eye Exam: PERRL/EOMI Ears, Nose, Throat Exam: normal ENT inspection Neck Exam: normal inspection Respiratory Exam: normal breath sounds Cardiovascular Exam: regular rate/rhythm Gastrointestinal/Abdomen Exam: soft Back Exam: normal inspection Extremity Exam: normal inspection Skin Exam: normal color Results - Labs Lab/Micro Results: Lab Results-Last 24 Hours 06/12/21 06/12/21 06/12/21 Range/Units 03:23 03:23 03:23 WBC 7.7 (4.0-10.5) K/mm3 RBC 3.50 L (4.1-5.4) M/mm3 Hgb 10.8 L (12.0-16.0) gm/dl Hct 35.2 (35-47) % MCV 100.6 H (78-100) fl MCH 30.9 (26-32) pg MCHC 30.7 L (32-36) g/dl RDW 14.9 H (11.5-14.0) % Plt Count 290 (150-450) K/mm3 MPV 9.7 (7.5-11.0) fl Gran % 55.2 (36.0-66.0) % Eos # (Auto) 0.19 (0-0.5) Absolute Lymphs (auto) 2.45 (1.0-4.6) Absolute Monos (auto) 0.78 (0.0-1.3) Lymphocytes % 31.7 (24.0-44.0) % Monocytes % 10.1 (0.0-12.0) % Eosinophils % 2.5 (0.00-5.0) % Basophils % 0.5 (0.0-0.4) % Absolute Granulocytes 4.28 (1.4-6.9) Basophils # 0.04 (0-0.4) Sodium 139 (137-145) mmol/L Potassium 4.1 (3.5-5.1) mmol/L Chloride 103 (98-107) mmol/L Carbon Dioxide 29 (22-30) mmol/L Anion Gap 10.8 (5-15) MEQ/L BUN 29 H (7-17) mg/dL Creatinine 1.37 H (0.52-1.04) mg/dL Estimated GFR 39.6 ML/MIN Glucose 84 (74-106) mg/dL Calcium 9.4 (8.4-10.2) mg/dL Total Bilirubin 0.50 (0.2-1.3) mg/dL AST 22 (14-36) U/L ALT 18 (0-35) U/L Alkaline Phosphatase 68 (38-126) U/L Troponin I < 0.012 (0.000-0.034) ng/mL Serum Total Protein 6.7 (6.3-8.2) g/dL Albumin 3.8 (3.5-5.0) g/dL Urine Color (YELLOW) Urine Appearance (CLEAR) Urine pH (5-6) Ur Specific [place] (1.005-1.025) Urine Protein (Negative) Urine Ketones (NEGATIVE) Urine Blood (0-5) Shaji/ul Urine Nitrite (NEGATIVE) Urine Bilirubin (NEGATIVE) Urine Urobilinogen (0-1) mg/dL Ur Leukocyte Esterase (NEGATIVE) Urine WBC (Auto) (0-5) /HPF Urine RBC (Auto) (0-2) /HPF U Epithel Cells (Auto) (FEW) /HPF Urine Bacteria (Auto) (NEGATIVE) /HPF Urine Mucus (Auto) (NEGATIVE) /HPF Urine Culture Reflexed (NO) Urine Glucose (NEGATIVE) mg/dL Influenza Type A Ag (NEGATIVE) Influenza Type B Ag (NEGATIVE) RSV (PCR) (Negative) SARS-CoV-2 (PCR) (NEGATIVE) 06/12/21 06/12/21 06/12/21 Range/Units 04:58 05:45 05:55 WBC (4.0-10.5) K/mm3 RBC (4.1-5.4) M/mm3 Hgb (12.0-16.0) gm/dl Hct (35-47) % MCV (78-100) fl MCH (26-32) pg MCHC (32-36) g/dl RDW (11.5-14.0) % Plt Count (150-450) K/mm3 MPV (7.5-11.0) fl Gran % (36.0-66.0) % Eos # (Auto) (0-0.5) Absolute Lymphs (auto) (1.0-4.6) Absolute Monos (auto) (0.0-1.3) Lymphocytes % (24.0-44.0) % Monocytes % (0.0-12.0) % Eosinophils % (0.00-5.0) % Basophils % (0.0-0.4) % Absolute Granulocytes (1.4-6.9) Basophils # (0-0.4) Sodium (137-145) mmol/L Potassium (3.5-5.1) mmol/L Chloride (98-107) mmol/L Carbon Dioxide (22-30) mmol/L Anion Gap (5-15) MEQ/L BUN (7-17) mg/dL Creatinine (0.52-1.04) mg/dL Estimated GFR ML/MIN Glucose (74-106) mg/dL Calcium (8.4-10.2) mg/dL Total Bilirubin (0.2-1.3) mg/dL AST (14-36) U/L ALT (0-35) U/L Alkaline Phosphatase (38-126) U/L Troponin I < 0.012 (0.000-0.034) ng/mL Serum Total Protein (6.3-8.2) g/dL Albumin (3.5-5.0) g/dL Urine Color YELLOW (YELLOW) Urine Appearance SLIGHTLY CLOUDY (CLEAR) Urine pH 5.0 (5-6) Ur Specific [place] 1.020 (1.005-1.025) Urine Protein NEGATIVE (Negative) Urine Ketones NEGATIVE (NEGATIVE) Urine Blood NEGATIVE (0-5) Shaji/ul Urine Nitrite POSITIVE (NEGATIVE) Urine Bilirubin NEGATIVE (NEGATIVE) Urine Urobilinogen NEGATIVE (0-1) mg/dL Ur Leukocyte Esterase MODERATE (NEGATIVE) Urine WBC (Auto) 26-50 (0-5) /HPF Urine RBC (Auto) 0-2 (0-2) /HPF U Epithel Cells (Auto) RARE (FEW) /HPF Urine Bacteria (Auto) RARE (NEGATIVE) /HPF Urine Mucus (Auto) SLIGHT (NEGATIVE) /HPF Urine Culture Reflexed YES (NO) Urine Glucose NEGATIVE (NEGATIVE) mg/dL Influenza Type A Ag NEGATIVE (NEGATIVE) Influenza Type B Ag NEGATIVE (NEGATIVE) RSV (PCR) NEGATIVE (Negative) SARS-CoV-2 (PCR) NEGATIVE (NEGATIVE) 06/12/21 Range/Units 09:03 WBC (4.0-10.5) K/mm3 RBC (4.1-5.4) M/mm3 Hgb (12.0-16.0) gm/dl Hct (35-47) % MCV (78-100) fl MCH (26-32) pg MCHC (32-36) g/dl RDW (11.5-14.0) % Plt Count (150-450) K/mm3 MPV (7.5-11.0) fl Gran % (36.0-66.0) % Eos # (Auto) (0-0.5) Absolute Lymphs (auto) (1.0-4.6) Absolute Monos (auto) (0.0-1.3) Lymphocytes % (24.0-44.0) % Monocytes % (0.0-12.0) % Eosinophils % (0.00-5.0) % Basophils % (0.0-0.4) % Absolute Granulocytes (1.4-6.9) Basophils # (0-0.4) Sodium (137-145) mmol/L Potassium (3.5-5.1) mmol/L Chloride (98-107) mmol/L Carbon Dioxide (22-30) mmol/L Anion Gap (5-15) MEQ/L BUN (7-17) mg/dL Creatinine (0.52-1.04) mg/dL Estimated GFR ML/MIN Glucose (74-106) mg/dL Calcium (8.4-10.2) mg/dL Total Bilirubin (0.2-1.3) mg/dL AST (14-36) U/L ALT (0-35) U/L Alkaline Phosphatase (38-126) U/L Troponin I < 0.012 (0.000-0.034) ng/mL Serum Total Protein (6.3-8.2) g/dL Albumin (3.5-5.0) g/dL Urine Color (YELLOW) Urine Appearance (CLEAR) Urine pH (5-6) Ur Specific [place] (1.005-1.025) Urine Protein (Negative) Urine Ketones (NEGATIVE) Urine Blood (0-5) Shaji/ul Urine Nitrite (NEGATIVE) Urine Bilirubin (NEGATIVE) Urine Urobilinogen (0-1) mg/dL Ur Leukocyte Esterase (NEGATIVE) Urine WBC (Auto) (0-5) /HPF Urine RBC (Auto) (0-2) /HPF U Epithel Cells (Auto) (FEW) /HPF Urine Bacteria (Auto) (NEGATIVE) /HPF Urine Mucus (Auto) (NEGATIVE) /HPF Urine Culture Reflexed (NO) Urine Glucose (NEGATIVE) mg/dL Influenza Type A Ag (NEGATIVE) Influenza Type B Ag (NEGATIVE) RSV (PCR) (Negative) SARS-CoV-2 (PCR) (NEGATIVE) - Radiology Impressions Radiology Exams & Impressions: Radiology Procedures Category Date Time Status HEAD WITHOUT CONTRAST [CT] Stat Exams 06/12/21 03:31 Completed Assessment/Plan (1) UTI (urinary tract infection) Current Visit: Yes Status: Acute Qualifiers: Urinary tract infection type: acute cystitis Hematuria presence: without hematuria Qualified Code(s): N30.00 - Acute cystitis without hematuria Assessment & Plan: Chief Complaint Diagnosis Altered Mental Status Allergies Allergy/AdvReac Type Severity Reaction Status Date / Time No Known Drug Allergies Allergy Unverified 03/01/21 23:42 Vital Signs (Last 24 hours) Temp Pulse Resp BP Pulse Ox 06/12/21 19:59 97.8 F 72 19 136/70 100 06/12/21 17:00 76 15 99 06/12/21 13:34 97.8 F 72 19 118/47 99 06/12/21 12:00 97.1 F 78 17 142/72 92 L 06/12/21 08:34 97.9 F 71 16 142/72 100 06/12/21 07:33 79 18 140/76 99 06/12/21 07:07 100 06/12/21 06:00 60 17 136/63 99 06/12/21 05:00 56 L 20 120/62 99 06/12/21 04:07 64 16 120/53 96 06/12/21 03:21 97.6 F 54 L 16 126/45 100 Home Medications Medication Instructions Recorded Confirmed Last Taken Type Acetaminophen 325 mg [Tylenol 650 mg PO Q4H PRN PRN 06/12/21 06/12/21 Unknown History 325 mg] Amantadine HCl [Amantadine] 100 mg PO BID 06/12/21 06/12/21 06/11/21 History Amlodipine Besylate [Norvasc] 10 mg PO DAILY 06/12/21 06/12/21 06/11/21 History Cyanocobalamin (Vitamin B-12) 1,000 mcg PO DAILY 06/12/21 06/12/21 06/11/21 History [Vitamin B-12] Docusate Sodium [Colace] 100 mg PO BID 06/12/21 06/12/21 06/10/21 History Lisinopril 20 mg [Zestril 20 20 mg PO DAILY 06/12/21 06/12/21 06/11/21 History MG] Sennosides [Senna] 8.6 mg PO HS 06/12/21 06/12/21 06/10/21 History Current Medications Generic Name Dose Route Start Last Admin Trade Name Freq PRN Reason Stop Dose Admin Acetaminophen 650 mg 06/12/21 08:02 Acetaminophen 325 Mg Tablet PO 07/12/21 08:01 Q4H PRN PRN PAIN AND/OR FEVER Amlodipine Besylate 10 mg 06/12/21 12:00 06/12/21 13:38 Amlodipine Besylate 5 Mg Tablet PO 07/12/21 11:59 Not Given DAILY PHAN Cyanocobalamin 1,000 mcg 06/12/21 12:00 06/12/21 13:39 Cyanocobalamin 500 Mcg Tablet PO 07/12/21 11:59 Not Given DAILY PHAN Docusate Sodium 100 mg 06/12/21 12:00 06/12/21 21:07 Docusate Sodium 100 Mg Capsule PO 07/12/21 11:59 100 mg BID PHAN Administration Ceftriaxone Sodium/Dextrose 1 g in 50 mls @ 100 mls/hr 06/13/21 10:00 Rocephin 1 Gm-D5w 50 Ml Bag IV 06/16/21 09:59 Q24H10 PHAN Lisinopril 20 mg 06/12/21 12:00 06/12/21 13:39 Lisinopril 20 Mg Tablet PO 07/12/21 11:59 Not Given DAILY PHAN Miscellaneous Information 1 each 06/12/21 12:00 Medication Intervention 1 Each Each PO 07/12/21 11:59 .RN TO CHECK ON PHAN Morphine Sulfate 2 mg 06/12/21 08:02 Morphine Sulfate 2 Mg/Ml Inj IV 06/17/21 08:01 Q4H PRN PRN PAIN Ondansetron HCl 4 mg 06/12/21 08:02 Ondansetron Hcl 4 Mg/2 Ml Vial IV 07/12/21 08:01 Q6H PRN PRN NAUSEA/VOMITING Senna 8.6 mg 06/12/21 22:00 06/12/21 21:07 Senna 8.6 Mg Tablet PO 07/12/21 21:59 8.6 mg HS PHAN Administration Discontinued Medications Generic Name Dose Route Start Last Admin Trade Name Freq PRN Reason Stop Dose Admin Aspirin 324 mg 06/12/21 05:17 06/12/21 05:49 Aspirin 81 Mg Tab.Chew PO 06/12/21 05:18 324 mg STAT ONE Administration Aspirin Confirm 06/12/21 05:48 Aspirin 81 Mg Tab.Chew Administered 06/12/21 05:49 Dose 324 mg .ROUTE .STK-MED ONE Sodium Chloride 1,000 mls @ 100 mls/hr 06/12/21 03:15 06/12/21 04:24 Sodium Chloride 0.9% 1000 Ml IV 07/12/21 03:14 100 mls/hr .Q10H PHAN Administration Ceftriaxone Sodium/Dextrose 1 g in 50 mls @ 100 mls/hr 06/12/21 05:51 06/12/21 07:14 Rocephin 1 Gm-D5w 50 Ml Bag IV 06/12/21 06:20 Infused STAT STA Infusion Ceftriaxone Sodium/Dextrose Confirm 06/12/21 05:58 Rocephin 1 Gm-D5w 50 Ml Bag Administered 06/12/21 05:59 Dose 1 g in 50 mls @ ud IV .STK-MED ONE Sodium Chloride Confirm 06/12/21 04:21 Sodium Chloride 0.9% 1000 Ml Administered 06/12/21 04:22 Dose 1,000 mls @ ud .ROUTE .STK-MED ONE Intake & Output (Last 24 hours) 06/10/21 06/11/21 06/12/21 06/13/21 11:59 11:59 11:59 11:59 Intake Total 480 Output Total 750 900 Balance -750 -420 Weight 64.6 kg Microbiology Results (Last 24 hours) 06/12/21 04:58 Urine, Catheterized Urine Culture - Pending Laboratory Results (Last 24 hours) 06/12/21 06/12/21 06/12/21 09:03 05:55 05:45 WBC RBC Hgb Hct MCV MCH MCHC RDW Plt Count MPV Gran % Eos # (Auto) Absolute Lymphs (auto) Absolute Monos (auto) Lymphocytes % Monocytes % Eosinophils % Basophils % Absolute Granulocytes Basophils # Sodium Potassium Chloride Carbon Dioxide Anion Gap BUN Creatinine Estimated GFR Glucose Calcium Total Bilirubin AST ALT Alkaline Phosphatase Troponin I < 0.012 < 0.012 Serum Total Protein Albumin Urine Color Urine Appearance Urine pH Ur Specific [place] Urine Protein Urine Ketones Urine Blood Urine Nitrite Urine Bilirubin Urine Urobilinogen Ur Leukocyte Esterase Urine WBC (Auto) Urine RBC (Auto) U Epithel Cells (Auto) Urine Bacteria (Auto) Urine Mucus (Auto) Urine Culture Reflexed Urine Glucose Influenza Type A Ag NEGATIVE Influenza Type B Ag NEGATIVE RSV (PCR) NEGATIVE SARS-CoV-2 (PCR) NEGATIVE 06/12/21 06/12/21 06/12/21 04:58 03:23 03:23 WBC RBC Hgb Hct MCV MCH MCHC RDW Plt Count MPV Gran % Eos # (Auto) Absolute Lymphs (auto) Absolute Monos (auto) Lymphocytes % Monocytes % Eosinophils % Basophils % Absolute Granulocytes Basophils # Sodium 139 Potassium 4.1 Chloride 103 Carbon Dioxide 29 Anion Gap 10.8 BUN 29 H Creatinine 1.37 H Estimated GFR 39.6 Glucose 84 Calcium 9.4 Total Bilirubin 0.50 AST 22 ALT 18 Alkaline Phosphatase 68 Troponin I < 0.012 Serum Total Protein 6.7 Albumin 3.8 Urine Color YELLOW Urine Appearance SLIGHTLY CLOUDY Urine pH 5.0 Ur Specific [place] 1.020 Urine Protein NEGATIVE Urine Ketones NEGATIVE Urine Blood NEGATIVE Urine Nitrite POSITIVE Urine Bilirubin NEGATIVE Urine Urobilinogen NEGATIVE Ur Leukocyte Esterase MODERATE Urine WBC (Auto) 26-50 Urine RBC (Auto) 0-2 U Epithel Cells (Auto) RARE Urine Bacteria (Auto) RARE Urine Mucus (Auto) SLIGHT Urine Culture Reflexed YES Urine Glucose NEGATIVE Influenza Type A Ag Influenza Type B Ag RSV (PCR) SARS-CoV-2 (PCR) 06/12/21 03:23 WBC 7.7 RBC 3.50 L Hgb 10.8 L Hct 35.2 MCV 100.6 H MCH 30.9 MCHC 30.7 L RDW 14.9 H Plt Count 290 MPV 9.7 Gran % 55.2 Eos # (Auto) 0.19 Absolute Lymphs (auto) 2.45 Absolute Monos (auto) 0.78 Lymphocytes % 31.7 Monocytes % 10.1 Eosinophils % 2.5 Basophils % 0.5 Absolute Granulocytes 4.28 Basophils # 0.04 Sodium Potassium Chloride Carbon Dioxide Anion Gap BUN Creatinine Estimated GFR Glucose Calcium Total Bilirubin AST ALT Alkaline Phosphatase Troponin I Serum Total Protein Albumin Urine Color Urine Appearance Urine pH Ur Specific [place] Urine Protein Urine Ketones Urine Blood Urine Nitrite Urine Bilirubin Urine Urobilinogen Ur Leukocyte Esterase Urine WBC (Auto) Urine RBC (Auto) U Epithel Cells (Auto) Urine Bacteria (Auto) Urine Mucus (Auto) Urine Culture Reflexed Urine Glucose Influenza Type A Ag Influenza Type B Ag RSV (PCR) SARS-CoV-2 (PCR) Orders (Last 24 hours) Category Date Time Status Bedrest ROUTINE Activity 06/12/21 08:02 Active Code Status Order ROUTINE Care 06/12/21 08:02 Active EKG-ER Only STAT Care 06/12/21 03:08 Completed IV Care Q6H Care 06/12/21 08:02 Active IV Insertion STAT Care 06/12/21 03:08 Completed Neuro Checks Q4H Care 06/12/21 08:[address] in Observation ROUTINE Care 06/12/21 08:02 Active Telemetry q6h Care 06/12/21 08:02 Active Consistent Carbohydrate Diet 1800 Calorie Diet 06/12/21 Breakfast Active HEAD WITHOUT CONTRAST [CT] Stat Exams 06/12/21 03:31 Completed CBC W DIFF AM.LAB Lab 06/13/21 04:00 Ordered CBC W DIFF Stat Lab 06/12/21 03:23 Completed CMP AM.LAB Lab 06/13/21 04:00 Ordered CMP Stat Lab 06/12/21 03:23 Completed CULTURE,URINE Stat Lab 06/12/21 04:58 Received TROPONIN Q3H Lab 06/12/21 03:23 Completed TROPONIN Q3H Lab 06/12/21 05:45 Completed TROPONIN Q3H Lab 06/12/21 09:03 Completed UA W/RFX UR CULTURE Stat Lab 06/12/21 04:58 Completed Acetaminophen 325 mg [Tylenol 325 mg] Med 06/12/21 08:02 Active 650 mg PO Q4H PRN PRN Amlodipine Besylate 5 mg [Norvasc 5 mg] Med 06/12/21 12:00 Active 10 mg PO DAILY Aspirin 81 gm Chew [Baby Aspirin 81 mg Chew] Med 06/12/21 05:48 Discontinued 324 mg .ROUTE .STK-MED ONE Aspirin 81 gm Chew [Baby Aspirin 81 mg Chew] Med 06/12/21 05:17 Discontinued 324 mg PO STAT ONE Ceftriaxone 1 GM/50 ML PREMIX* [ROCEPHIN 1 Gm-D5w 50 ml Med 06/13/21 10:00 Active Bag] 1 g in 50 ml IV Q24H10 Ceftriaxone 1 GM/50 ML PREMIX* [ROCEPHIN 1 Gm-D5w 50 ml Med 06/12/21 05:51 Discontinued Bag] 1 g in 50 ml IV STAT Ceftriaxone 1 GM/50 ML PREMIX* [ROCEPHIN 1 Gm-D5w 50 ml Med 06/12/21 05:58 Discontinued Bag] 1 g in 50 ml IV UD Cyanocobalamin 500 Mcg [Vitamin B-12 500 MCG] Med 06/12/21 12:00 Active 1,000 mcg PO DAILY Docusate Sodium 100 mg [Colace 100 MG] Med 06/12/21 12:00 Active 100 mg PO BID Lisinopril 20 mg [Zestril 20 MG] Med 06/12/21 12:00 Active 20 mg PO DAILY Medication Intervention Med 06/12/21 12:00 Active 1 each PO .RN TO CHECK ON Morphine Sulfate 2 mg Inj Med 06/12/21 08:02 Active 2 mg IV Q4H PRN PRN NaCl 0.9% 1000 ml [Sodium Chloride 0.9% 1000 ML] 1,000 Med 06/12/21 04:21 Discontinued ml .ROUTE UD NaCl 0.9% 1000 ml [Sodium Chloride 0.9% 1000 ML] 1,000 Med 06/12/21 03:15 Discontinued ml IV 100 mls/hr Ondansetron HCl 4 mg/2 ml [Zofran 4 MG/2 ML VIAL] Med 06/12/21 08:02 Active 4 mg IV Q6H PRN PRN Senna 8.6 mg [Senokot 8.6 mg] Med 06/12/21 22:00 Active 8.6 mg PO HS Pulse Oximetry CONTINUOUS RT 06/12/21 08:02 Completed Transfer Order Routine Transfer 06/12/21 Completed Patient Care Notes (Last 24 hours) 06/12/21 11:16 Case Management Note by Brianda Nelson PATIENT HAS [facility]. THEY WERE NOTIFIED PATIENT IS HERE. THEY WILL NEED NOTIFIED AT TIME OF DC AT [phone]. THEY WILL NEED FAXED THE DC INSTRUCTIONS, DC MED LIST AND DC SUMMARY ( IF AVAILABLE) TO [phone] Initialized on 06/12/21 11:16 - END OF NOTE Code(s): N39.0 - URINARY TRACT INFECTION, SITE NOT SPECIFIED (2) Lewy body dementia with behavioral disturbance Current Visit: Yes Status: Acute Code(s): G31.83 - DEMENTIA WITH LEWY BODIES; F02.81 - DEMENTIA IN OTH DISEASES CLASSD [id number] W BEHAVIORAL DISTURB (3) Combative behavior Current Visit: Yes Status: Acute Code(s): R46.89 - OTHER SYMPTOMS AND SIGNS INVOLVING APPEARANCE AND BEHAVIOR
[2021-06-12] MEDS ORDERED: AMANTADINE HCL 100 MG PO SCH (22:00)
[2021-06-13 06:01] LABS: Absolute Neutrophil Ct (ANC) 3.41 (1.4-6.9); Basophil (Absolute #) 0.03 (0-0.4); Eosinophil % 2.7 % (0.00-5.0); Eosinophil (Absolute #) 0.17 (0-0.5); Hematocrit 33.3 % (35-47); Hemoglobin 10.5 gm/dl (12.0-16.0); Lymphocyte (Absolute #) 2.14 (1.0-4.6); Lymphocytes % 33.6 % (24.0-44.0); Mean Cell Volume 99.4 fl (78-100); Mean Corpuscular Hemoglobin 31.3 pg (26-32); Mean Corpuscular Hgb Concent. 31.5 g/dl (32-36); Monocyte (Absolute #) 0.62 (0.0-1.3); Monocytes % 9.7 % (0.0-12.0); Neutrophil % 53.5 % (36.0-66.0); Platelet Count 274 K/mm3 (150-450); Red Blood Count 3.35 M/mm3 (4.1-5.4); Red Cell Distribution Width 14.8 % (11.5-14.0); White Blood Count 6.4 K/mm3 (4.0-10.5)
[2021-06-13 07:54] LABS: ALBUMIN 3.6 g/dL (3.5-5.0); ANION GAP 9.6 MEQ/L (5-15); BILIRUBIN,TOTAL 0.5 mg/dL (0.2-1.3); Calcium 8.9 mg/dL (8.4-10.2); Creatinine 1 1.12 mg/dL (0.52-1.04); Potassium 3.9 mmol/L (3.5-5.1); Total Protein 6.5 g/dL (6.3-8.2)
[2021-06-13] MEDS: ROCEPHIN 1 Gm-D5w 50 ml Bag** 1 G/50 ML IVPB IV SCH (09:45)
[2021-06-13] MEDS: Colace 100 MG PO SCH ×2 (09:45→14:53)
[2021-06-13] MEDS: NORVASC 5 MG PO SCH (09:45)
[2021-06-13] MEDS: Vitamin B-12 500 MCG PO SCH (09:45)
[2021-06-13] MEDS: Zestril 20 MG PO SCH (09:46)
[2021-06-13] MEDS ORDERED: NON-FORMULARY ITEM (Cyanocobalamin (Vitamin B-12) [Vitamin B-12] 1,000 MCG Capsule) PO SCH (10:00)
[2021-06-13] MEDS ORDERED: NON-FORMULARY ITEM (Amlodipine Besylate [Norvasc] 10 MG Tablet) PO SCH (10:00)
--- NOTE | 2021-06-13 13:30 | XRAY ---
Indication: pen[facility]entiary placement. Comparison: November 14, 2020. Portable chest is now clear. Heart not enlarged. Bony thorax intact again with osteopenia and degenerative changes. Impression: Nonacute chest with chronic bony findings.
[2021-06-13] MEDS ORDERED: Ativan 1 MG PO PRN (14:31)
[2021-06-13] MEDS: SENOKOT 8.6 MG PO SCH (14:53)
[2021-06-13] MEDS: MORPHINE SULFATE 2 MG INJ IV PRN (15:30)
--- NOTE | 2021-06-13 19:29 | PCM.NOTE ---
Date and Time: 06/13/211926 Subjective Assessment: still very confused - Review of Systems Constitutional: No Fever, No Chills Eyes: No Symptoms Ears, Nose, & Throat: No Symptoms Respiratory: No Cough, No Short Of Breath Cardiac: No Chest Pain, No Edema, No Syncope Abdominal/Gastrointestinal: No Abdominal Pain, No Nausea, No Vomiting, No Diarrhea Genitourinary Symptoms: No Dysuria Musculoskeletal: No Back Pain, No Neck Pain Skin: No Rash Neurological: No Dizziness, No Focal Weakness, No Sensory Changes Psychological: No Symptoms Endocrine: No Symptoms Hematologic/Lymphatic: No Symptoms Immunological/Allergic: No Symptoms Objective Exam General Appearance: no apparent distress, alert Neurologic Exam: disoriented, confusion, No motor deficits Skin Exam: normal color, warm, dry Eye Exam: PERRL, EOMI, eyes nml inspection Ears, Nose, Throat Exam: normal ENT inspection, pharynx normal, moist mucous membranes Neck Exam: normal inspection, non-tender, supple, full range of motion Respiratory Exam: normal breath sounds, lungs clear, No respiratory distress Cardiovascular Exam: regular rate/rhythm, normal heart sounds Gastrointestinal/Abdomen Exam: soft, No tenderness, No mass Extremity Exam: normal inspection, normal range of motion Back Exam: normal inspection, normal range of motion, No CVA tenderness, No vertebral tenderness Pelvic Exam: deferred Rectal Exam: deferred OBJECTIVE DATA Vital Signs: Vital Signs - 24 hr Temp Pulse Resp BP Pulse Ox 06/13/21 15:00 104 H 23 100 06/13/21 11:00 97.1 F 73 22 115/92 97 06/13/21 07:00 75 27 H 98 06/13/21 03:00 97.9 F 83 25 H 151/68 98 06/12/21 23:48 97.7 F 73 17 112/56 98 06/12/21 19:59 97.8 F 72 19 136/70 100 Pain Assessment - Last Documented Pain Intensity 0 [facility] Intake and Output: Intake & Output 06/11/21 06/12/21 06/13/21 06/14/21 11:59 11:59 11:59 11:59 Intake Total 960 480 Output Total 750 1550 200 Balance -750 -590 280 Weight 64.6 kg Lab Results: Lab Results-Last 24 Hours 06/13/21 06/13/21 Range/Units 05:40 05:40 WBC 6.4 (4.0-10.5) K/mm3 RBC 3.35 L (4.1-5.4) M/mm3 Hgb 10.5 L (12.0-16.0) gm/dl Hct 33.3 L (35-47) % MCV 99.4 (78-100) fl MCH 31.3 (26-32) pg MCHC 31.5 L (32-36) g/dl RDW 14.8 H (11.5-14.0) % Plt Count 274 (150-450) K/mm3 MPV 10.0 (7.5-11.0) fl Gran % 53.5 (36.0-66.0) % Eos # (Auto) 0.17 (0-0.5) Absolute Lymphs (auto) 2.14 (1.0-4.6) Absolute Monos (auto) 0.62 (0.0-1.3) Lymphocytes % 33.6 (24.0-44.0) % Monocytes % 9.7 (0.0-12.0) % Eosinophils % 2.7 (0.00-5.0) % Basophils % 0.5 (0.0-0.4) % Absolute Granulocytes 3.41 (1.4-6.9) Basophils # 0.03 (0-0.4) Sodium 139 (137-145) mmol/L Potassium 3.9 (3.5-5.1) mmol/L Chloride 105 (98-107) mmol/L Carbon Dioxide 28 (22-30) mmol/L Anion Gap 9.6 (5-15) MEQ/L BUN 19 H (7-17) mg/dL Creatinine 1.12 H (0.52-1.04) mg/dL Estimated GFR 50.0 ML/MIN Glucose 82 (74-106) mg/dL Calcium 8.9 (8.4-10.2) mg/dL Total Bilirubin 0.50 (0.2-1.3) mg/dL AST 19 (14-36) U/L ALT 16 (0-35) U/L Alkaline Phosphatase 69 (38-126) U/L Serum Total Protein 6.5 (6.3-8.2) g/dL Albumin 3.6 (3.5-5.0) g/dL Radiology Exams: Radiology Procedures Category Date Time Status CHEST 1 VIEW (PORTABLE) Urgent Exams 06/13/21 12:46 Completed HEAD WITHOUT CONTRAST [CT] Stat Exams 06/12/21 03:31 Completed Multi-Disciplinary Progress Notes: Multi-Disciplinary Progress Notes 06/13/21 14:37 Case Management Note by Franci Oliveira ATTEMPTED TO PHONE [facility], TO CHECK ON REFERRAL STATUS. REFERRAL FAXED AT 1300 TO THEM. WILL CONTINUE TO FOLLOW. Initialized on 06/13/21 14:37 - END OF NOTE 06/13/21 09:52 Case Management Note by Franci Oliveira TALKED TO DAUGHTER IN LAW- [employer] ABOUT PATIENT D/C PLAN. ATTEMPTED TO PHONE DAUGHTER CANDIDA, NO ANSWER WILL TRY AGAIN. DR SCHROEDER WOULD LIKE TO ENSURE PATIENT HAS 24 HOUR CARE ON D/C IF NOT PLACED IN REHAB FACILITY. [employer] STATES THEY WOULD LIKE TO SEE IF HE WOULD RECOMMEND OR PRESCRIBE SOMETHING FOR ANXIETY/SLEEP AT BEDTIME. SHE IS LIVING WITH DAUGHTER, CANDIDA AND HER . THEY HAVE ORDERED A BED PRESSURE ALARM TO NOTIFY THEM IF SHE GETS UP ALONE AT NIGHT, AND THEY ARE INSTALLING [facility]AFETY [place] AT THEIR [facility] FOR SAFETY MEASURES FOR HER. THEY STATE THEY NEED REFILL ON PATIENTS TREMOR MEDICATIONS PRIOR TO D/C. Initialized on 06/13/21 09:52 - END OF NOTE Assessment/Plan (1) UTI (urinary tract infection) Current Visit: Yes Status: Acute Qualifiers: Urinary tract infection type: acute cystitis Hematuria presence: without hematuria Qualified Code(s): N30.00 - Acute cystitis without hematuria Assessment & Plan: Chief Complaint Diagnosis Altered Mental Status Allergies Allergy/AdvReac Type Severity Reaction Status Date / Time No Known Drug Allergies Allergy Unverified 03/01/21 23:42 Vital Signs (Last 24 hours) Temp Pulse Resp BP Pulse Ox 06/13/21 15:00 104 H 23 100 06/13/21 11:00 97.1 F 73 22 115/92 97 06/13/21 07:00 75 27 H 98 06/13/21 03:00 97.9 F 83 25 H 151/68 98 06/12/21 23:48 97.7 F 73 17 112/56 98 06/12/21 19:59 97.8 F 72 19 136/70 100 Home Medications Medication Instructions Recorded Confirmed Last Taken Type Acetaminophen 325 mg [Tylenol 650 mg PO Q4H PRN PRN 06/12/21 06/12/21 Unknown History 325 mg] Amantadine HCl [Amantadine] 100 mg PO BID 06/12/21 06/12/21 06/11/21 History Amlodipine Besylate [Norvasc] 10 mg PO DAILY 06/12/21 06/12/21 06/11/21 History Cyanocobalamin (Vitamin B-12) 1,000 mcg PO DAILY 06/12/21 06/12/21 06/11/21 History [Vitamin B-12] Docusate Sodium [Colace] 100 mg PO BID 06/12/21 06/12/21 06/10/21 History Lisinopril 20 mg [Zestril 20 20 mg PO DAILY 06/12/21 06/12/21 06/11/21 History MG] Sennosides [Senna] 8.6 mg PO HS 06/12/21 06/12/21 06/10/21 History Current Medications Generic Name Dose Route Start Last Admin Trade Name Freq PRN Reason Stop Dose Admin Acetaminophen 650 mg 06/12/21 08:02 Acetaminophen 325 Mg Tablet PO 07/12/21 08:01 Q4H PRN PRN PAIN AND/OR FEVER Amlodipine Besylate 10 mg 06/12/21 12:00 06/13/21 09:45 Amlodipine Besylate 5 Mg Tablet PO 07/12/21 11:59 10 mg DAILY PHAN Administration Cyanocobalamin 1,000 mcg 06/12/21 12:00 06/13/21 09:45 Cyanocobalamin 500 Mcg Tablet PO 07/12/21 11:59 1,000 mcg DAILY PHAN Administration Docusate Sodium 100 mg 06/12/21 12:00 06/13/21 14:53 Docusate Sodium 100 Mg Capsule PO 07/12/21 11:59 100 mg BID PHAN Administration Ceftriaxone Sodium/Dextrose 1 g in 50 mls @ 100 mls/hr 06/13/21 10:00 06/13/21 09:45 Rocephin 1 Gm-D5w 50 Ml Bag IV 06/16/21 09:59 100 mls/hr Q24H10 PHAN Administration Lisinopril 20 mg 06/12/21 12:00 06/13/21 09:46 Lisinopril 20 Mg Tablet PO 07/12/21 11:59 20 mg DAILY PHAN Administration Lorazepam 1 mg 06/13/21 14:31 06/13/21 14:51 Lorazepam 1 Mg Tablet PO 07/13/21 14:30 1 mg Q6H PRN PRN Administration ANXIETY Miscellaneous Information 1 each 06/12/21 12:00 Medication Intervention 1 Each Each PO 07/12/21 11:59 .RN TO CHECK ON PHAN Morphine Sulfate 2 mg 06/12/21 08:02 06/13/21 15:30 Morphine Sulfate 2 Mg/Ml Inj IV 06/17/21 08:01 2 mg Q4H PRN PRN Administration PAIN Ondansetron HCl 4 mg 06/12/21 08:02 Ondansetron Hcl 4 Mg/2 Ml Vial IV 07/12/21 08:01 Q6H PRN PRN NAUSEA/VOMITING Senna 8.6 mg 06/12/21 22:00 06/13/21 14:53 Senna 8.6 Mg Tablet PO 07/12/21 21:59 8.6 mg HS PHAN Administration Discontinued Medications Generic Name Dose Route Start Last Admin Trade Name Freq PRN Reason Stop Dose Admin Aspirin 324 mg 06/12/21 05:17 06/12/21 05:49 Aspirin 81 Mg Tab.Chew PO 06/12/21 05:18 324 mg STAT ONE Administration Aspirin Confirm 06/12/21 05:48 Aspirin 81 Mg Tab.Chew Administered 06/12/21 05:49 Dose 324 mg .ROUTE .STK-MED ONE Sodium Chloride 1,000 mls @ 100 mls/hr 06/12/21 03:15 06/12/21 04:24 Sodium Chloride 0.9% 1000 Ml IV 07/12/21 03:14 100 mls/hr .Q10H PHAN Administration Ceftriaxone Sodium/Dextrose 1 g in 50 mls @ 100 mls/hr 06/12/21 05:51 06/12/21 07:14 Rocephin 1 Gm-D5w 50 Ml Bag IV 06/12/21 06:20 Infused STAT STA Infusion Ceftriaxone Sodium/Dextrose Confirm 06/12/21 05:58 Rocephin 1 Gm-D5w 50 Ml Bag Administered 06/12/21 05:59 Dose 1 g in 50 mls @ ud IV .STK-MED ONE Sodium Chloride Confirm 06/12/21 04:21 Sodium Chloride 0.9% 1000 Ml Administered 06/12/21 04:22 Dose 1,000 mls @ ud .ROUTE .STK-MED ONE Intake & Output (Last 24 hours) 06/11/21 06/12/21 06/13/21 06/14/21 11:59 11:59 11:59 11:59 Intake Total 960 480 Output Total 750 1550 200 Balance -750 -590 280 Weight 64.6 kg Microbiology Results (Last 24 hours) 06/12/21 04:58 Urine, Catheterized Urine Culture - Preliminary GRAM NEGATIVE ID AND SENSITIVITY PENDING Laboratory Results (Last 24 hours) 06/13/21 06/13/21 05:40 05:40 WBC 6.4 RBC 3.35 L Hgb 10.5 L Hct 33.3 L MCV 99.4 MCH 31.3 MCHC 31.5 L RDW 14.8 H Plt Count 274 MPV 10.0 Gran % 53.5 Eos # (Auto) 0.17 Absolute Lymphs (auto) 2.14 Absolute Monos (auto) 0.62 Lymphocytes % 33.6 Monocytes % 9.7 Eosinophils % 2.7 Basophils % 0.5 Absolute Granulocytes 3.41 Basophils # 0.03 Sodium 139 Potassium 3.9 Chloride 105 Carbon Dioxide 28 Anion Gap 9.6 BUN 19 H Creatinine 1.12 H Estimated GFR 50.0 Glucose 82 Calcium 8.9 Total Bilirubin 0.50 AST 19 ALT 16 Alkaline Phosphatase 69 Serum Total Protein 6.5 Albumin 3.6 Orders (Last 24 hours) Category Date Time Status CHEST 1 VIEW (PORTABLE) Urgent Exams 06/13/21 12:46 Completed CBC W DIFF AM.LAB Lab 06/13/21 05:40 Completed CMP AM.LAB Lab 06/13/21 05:40 Completed Ceftriaxone 1 GM/50 ML PREMIX* [ROCEPHIN 1 Gm-D5w 50 ml Med 06/13/21 10:00 Active Bag] 1 g in 50 ml IV Q24H10 Lorazepam 1 mg [Ativan 1 MG] Med 06/13/21 14:31 Active 1 mg PO Q6H PRN PRN Senna 8.6 mg [Senokot 8.6 mg] Med 06/12/21 22:00 Active 8.6 mg PO HS Patient Care Notes (Last 24 hours) 06/13/21 15:54 Nursing Note by Rebecca Azevedo Family member here to see pt. Pt now awake. Initialized on 06/13/21 15:54 - END OF NOTE 06/13/21 15:38 Nursing Note by Rebecca Azevedo Noted pt able to rest with her eyes closed. Initialized on 06/13/21 15:38 - END OF NOTE 06/13/21 15:30 (created 06/13/21 15:37) Nursing Note by Rebecca Azevedo Pt crying out, yelling and attempting to get out of bed. Morphine given. Initialized on 06/13/21 15:37 - END OF NOTE 06/13/21 14:37 Case Management Note by Franci Oliveira ATTEMPTED TO PHONE [facility], TO CHECK ON REFERRAL STATUS. REFERRAL FAXED AT 1300 TO THEM. WILL CONTINUE TO FOLLOW. Initialized on 06/13/21 14:37 - END OF NOTE 06/13/21 14:24 SBAR Note by Rebecca Azevedo SITUATION I am calling about DEMARCUS NAVARRO the patient's code status is SCO The problem I am calling about is: Called Dr Schroeder regarding pt yelling out, rambling, incomprehensible at this time. Received new order. ASSESSMENT RECOMMENDATION Physician notified at 1424 New Orders received: Vital Signs (Last 4 hours) Temp Pulse Resp BP Pulse Ox 06/13/21 11:00 97.1 F 73 22 115/92 97 Diagnois, Code Status Date of Arrival on Unit 06/12/21 Admitted From Emergency Dept Diagnosis Altered Mental Status Resucitation Status SCO Intake and Output 12 Hours 06/13/21 06/13/21 06:59 18:59 Intake Total 720 Output Total 1050 Balance -1050 720 Intake: Intake, Oral Amount 720 Output: Output, Urine Amount 1050 Other: Number of Voids 1 Number of Bowel Movements 1 Physical Assessment Anxiety Level None,at ease,Awake,Calm,Low Mental Status Confused Patient Orientation Person Coma Scale Total 14 Breath Sounds [Anterior/ Clear Posterior Bilateral Throughout ] Cardiac Rhythm-S[facility] Sinus Rhythm Change from Baseline: No Bowel Sounds [All Quadrants] Active Abdomen Description Soft,Non-Tender Urine Appearance Cloudy Urine Color Yellow Skin Color Normal for Race Skin Temperature Warm Pain Scale (Last 12 Hours) Pain Intensity 0 Pain Intensity 0 PAST MEDICAL HISTORY Neurological History Dementia ENT History No Pertinent History Endocrine Medical History No Pertinent History Respiratory History No Pertinent History Cardiac History Hypertension GI Medical History No Pertinent History History No Pertinent History Reproductive Disorders No Pertinent History Pyscho-Social History No Pertinent History Communicable Disease No Pertinent History Comment skin ca 2020, prolapsed uterus hx brain bleed in march Lab Results (Last 12 Hours) 06/13/21 06/13/21 Range/Units 05:40 05:40 WBC 6.4 (4.0-10.5) K/mm3 RBC 3.35 L (4.1-5.4) M/mm3 Hgb 10.5 L (12.0-16.0) gm/dl Hct 33.3 L (35-47) % MCV 99.4 (78-100) fl MCH 31.3 (26-32) pg MCHC 31.5 L (32-36) g/dl RDW 14.8 H (11.5-14.0) % Plt Count 274 (150-450) K/mm3 MPV 10.0 (7.5-11.0) fl Gran % 53.5 (36.0-66.0) % Eos # (Auto) 0.17 (0-0.5) Absolute Lymphs (auto) 2.14 (1.0-4.6) Absolute Monos (auto) 0.62 (0.0-1.3) Lymphocytes % 33.6 (24.0-44.0) % Monocytes % 9.7 (0.0-12.0) % Eosinophils % 2.7 (0.00-5.0) % Basophils % 0.5 (0.0-0.4) % Absolute Granulocytes 3.41 (1.4-6.9) Basophils # 0.03 (0-0.4) Sodium 139 (137-145) mmol/L Potassium 3.9 (3.5-5.1) mmol/L Chloride 105 (98-107) mmol/L Carbon Dioxide 28 (22-30) mmol/L Anion Gap 9.6 (5-15) MEQ/L BUN 19 H (7-17) mg/dL Creatinine 1.12 H (0.52-1.04) mg/dL Estimated GFR 50.0 ML/MIN Glucose 82 (74-106) mg/dL Calcium 8.9 (8.4-10.2) mg/dL Total Bilirubin 0.50 (0.2-1.3) mg/dL AST 19 (14-36) U/L ALT 16 (0-35) U/L Alkaline Phosphatase 69 (38-126) U/L Serum Total Protein 6.5 (6.3-8.2) g/dL Albumin 3.6 (3.5-5.0) g/dL Microbiology Results (Last 12 Hours) 06/12/21 04:58 Urine Culture - Preliminary Urine, Catheterized GRAM NEGATIVE ID AND SENSITIVITY PENDING Orders (Last 12 Hours) Category Date Time Status Ceftriaxone 1 GM/50 ML PREMIX* [ROCEPHIN 1 Gm-D5w 50 ml Med 06/13/21 10:00 Active Bag] 1 g in 50 ml IV Q24H10 Active Visit Medications Generic Name Dose Route Start Last Admin Trade Name Freq PRN Reason Stop Dose Admin Acetaminophen 650 mg 06/12/21 08:02 Acetaminophen 325 Mg Tablet PO 07/12/21 08:01 Q4H PRN PRN PAIN AND/OR FEVER Amlodipine Besylate 10 mg 06/12/21 12:00 06/13/21 09:45 Amlodipine Besylate 5 Mg Tablet PO 07/12/21 11:59 10 mg DAILY PHAN Administration Cyanocobalamin 1,000 mcg 06/12/21 12:00 06/13/21 09:45 Cyanocobalamin 500 Mcg Tablet PO 07/12/21 11:59 1,000 mcg DAILY PHAN Administration Docusate Sodium 100 mg 06/12/21 12:00 06/13/21 09:45 Docusate Sodium 100 Mg Capsule PO 07/12/21 11:59 100 mg BID PHAN Administration Ceftriaxone Sodium/Dextrose 1 g in 50 mls @ 100 mls/hr 06/13/21 10:00 06/13/21 09:45 Rocephin 1 Gm-D5w 50 Ml Bag IV 06/16/21 09:59 100 mls/hr Q24H10 PHAN Administration Lisinopril 20 mg 06/12/21 12:00 06/13/21 09:46 Lisinopril 20 Mg Tablet PO 07/12/21 11:59 20 mg DAILY PHAN Administration Miscellaneous Information 1 each 06/12/21 12:00 Medication Intervention 1 Each Each PO 07/12/21 11:59 .RN TO CHECK ON PHAN Morphine Sulfate 2 mg 06/12/21 08:02 Morphine Sulfate 2 Mg/Ml Inj IV 06/17/21 08:01 Q4H PRN PRN PAIN Ondansetron HCl 4 mg 06/12/21 08:02 Ondansetron Hcl 4 Mg/2 Ml Vial IV 07/12/21 08:01 Q6H PRN PRN NAUSEA/VOMITING Senna 8.6 mg 06/12/21 22:00 06/12/21 21:07 Senna 8.6 Mg Tablet PO 07/12/21 21:59 8.6 mg HS [facility] Administration Home Medications Medication Instructions Recorded Confirmed Last Taken Type Acetaminophen 325 mg [Tylenol 650 mg PO Q4H PRN PRN 06/12/21 06/12/21 Unknown History 325 mg] Amantadine HCl [Amantadine] 100 mg PO BID 06/12/21 06/12/21 06/11/21 History Amlodipine Besylate [Norvasc] 10 mg PO DAILY 06/12/21 06/12/21 06/11/21 History Cyanocobalamin (Vitamin B-12) 1,000 mcg PO DAILY 06/12/21 06/12/21 06/11/21 History [Vitamin B-12] Docusate Sodium [Colace] 100 mg PO BID 06/12/21 06/12/21 06/10/21 History Lisinopril 20 mg [Zestril 20 20 mg PO DAILY 06/12/21 06/12/21 06/11/21 History MG] Sennosides [Senna] 8.6 mg PO HS 06/12/21 06/12/21 06/10/21 History Initialized on 06/13/21 14:24 - END OF NOTE 06/13/21 09:52 Case Management Note by Franci Oliveira TALKED TO DAUGHTER IN [employer]- [employer] ABOUT PATIENT D/C PLAN. ATTEMPTED TO PHONE DAUGHTER CANDIDA, NO ANSWER WILL TRY AGAIN. DR SCHROEDER WOULD LIKE TO ENSURE PATIENT HAS 24 HOUR CARE ON D/C IF NOT PLACED IN REHAB FACILITY. [facility] STATES THEY WOULD LIKE TO SEE IF HE WOULD RECOMMEND OR PRESCRIBE SOMETHING FOR ANXIETY/SLEEP AT [facility]. SHE IS LIVING WITH DAUGHTER, CANDIDA AND HER . THEY HAVE ORDERED A BED PRESSURE ALARM TO NOTIFY THEM IF SHE GETS UP ALONE AT NIGHT, AND THEY ARE INSTALLING SAFET[facility] [employer] AT THEIR [facility] FOR SAFETY MEASURES FOR HER. THEY STATE THEY NEED REFILL ON PATIENTS TREMOR MEDICATIONS PRIOR TO D/C. Initialized on 06/13/21 09:52 - END OF NOTE Code(s): N39.0 - URINARY TRACT INFECTION, SITE NOT SPECIFIED (2) Lewy body dementia with behavioral disturbance Current Visit: Yes Status: Acute Code(s): G31.83 - DEMENTIA WITH LEWY BODIES; F02.81 - DEMENTIA IN OTH DISEASES CLASSD [id number] W BEHAVIORAL DISTURB (3) Combative behavior Current Visit: Yes Status: Acute Code(s): R46.89 - OTHER SYMPTOMS AND SIGNS INVOLVING APPEARANCE AND BEHAVIOR
[2021-06-14] MEDS: MORPHINE SULFATE 2 MG INJ IV PRN ×2 (01:25→12:54)
[2021-06-14] MEDS: NORVASC 5 MG PO SCH (08:54)
[2021-06-14] MEDS: Zestril 20 MG PO SCH (08:55)
[2021-06-14] MEDS: Vitamin B-12 500 MCG PO SCH (08:55)
[2021-06-14] MEDS: ROCEPHIN 1 Gm-D5w 50 ml Bag** 1 G/50 ML IVPB IV SCH (08:55)
[2021-06-14] MEDS: Colace 100 MG PO SCH (08:55)
[2021-06-14 15:29] VITALS: BP 123/53; PULSE 64; O2SAT 99
--- NOTE | 2021-06-14 17:57 | PCM.DS ---
Discharge Summary Date of Admission: 06/12/21 07:40 Admitting Physician: KING SCHROEDER Primary Care Provider: KING SCHROEDER Allergies Allergies No Known Drug Allergies Allergy (Unverified 03/01/21 23:42) Hospital Summary - Hospital Course Hospital Course: Chief Complaint Diagnosis Altered Mental Status Allergies Allergy/AdvReac Type Severity Reaction Status Date / Time No Known Drug Allergies Allergy Unverified 03/01/21 23:42 Vital Signs (Last 24 hours) Temp Pulse Resp BP Pulse Ox 06/14/21 15:00 97.6 F 64 16 123/53 99 06/14/21 11:00 97.6 F 84 16 114/67 98 06/14/21 07:00 96.1 F 75 24 142/61 98 06/14/21 03:00 97.8 F 52 L 16 136/58 98 06/13/21 23:00 97.5 F 71 17 115/51 98 06/13/21 19:00 97.3 F 88 16 148/66 98 Home Medications Medication Instructions Recorded Confirmed Last Taken Type Acetaminophen 325 mg [Tylenol 650 mg PO Q4H PRN PRN 06/12/21 06/12/21 Unknown History 325 mg] Amlodipine Besylate [Norvasc] 10 mg PO DAILY 06/12/21 06/12/21 06/11/21 History Cyanocobalamin (Vitamin B-12) 1,000 mcg PO DAILY 06/12/21 06/12/21 06/11/21 History [Vitamin B-12] Docusate Sodium [Colace] 100 mg PO BID 06/12/21 06/12/21 06/10/21 History Lisinopril 20 mg [Zestril 20 20 mg PO DAILY 06/12/21 06/12/21 06/11/21 History MG] Sennosides [Senna] 8.6 mg PO HS 06/12/21 06/12/21 06/10/21 History Amantadine HCl [Amantadine] 100 mg PO BID #60 tablet 06/14/21 Unknown Rx levoFLOXacin [Levofloxacin] 250 mg PO DAILY 5 Days #5 tablet 06/14/21 Unknown Rx Current Medications Discontinued Medications Generic Name Dose Route Start Last Admin Trade Name Freq PRN Reason Stop Dose Admin Acetaminophen 650 mg 06/12/21 08:02 06/14/21 02:13 Acetaminophen 325 Mg Tablet PO 07/12/21 08:01 650 mg Q4H PRN PRN Administration PAIN AND/OR FEVER Amlodipine Besylate 10 mg 06/12/21 12:00 06/14/21 08:54 Amlodipine Besylate 5 Mg Tablet PO 07/12/21 11:59 10 mg DAILY PHAN Administration Aspirin 324 mg 06/12/21 05:17 06/12/21 05:49 Aspirin 81 Mg Tab.Chew PO 06/12/21 05:18 324 mg STAT ONE Administration Aspirin Confirm 06/12/21 05:48 Aspirin 81 Mg Tab.Chew Administered 06/12/21 05:49 Dose 324 mg .ROUTE .STK-MED ONE Cyanocobalamin 1,000 mcg 06/12/21 12:00 06/14/21 08:55 Cyanocobalamin 500 Mcg Tablet PO 07/12/21 11:59 1,000 mcg DAILY PHAN Administration Docusate Sodium 100 mg 06/12/21 12:00 06/14/21 08:55 Docusate Sodium 100 Mg Capsule PO 07/12/21 11:59 100 mg BID PHAN Administration Sodium Chloride 1,000 mls @ 100 mls/hr 06/12/21 03:15 06/12/21 04:24 Sodium Chloride 0.9% 1000 Ml IV 07/12/21 03:14 100 mls/hr .Q10H PHAN Administration Ceftriaxone Sodium/Dextrose 1 g in 50 mls @ 100 mls/hr 06/12/21 05:51 06/12/21 07:14 Rocephin 1 Gm-D5w 50 Ml Bag IV 06/12/21 06:20 Infused STAT STA Infusion Ceftriaxone Sodium/Dextrose Confirm 06/12/21 05:58 Rocephin 1 Gm-D5w 50 Ml Bag Administered 06/12/21 05:59 Dose 1 g in 50 mls @ ud IV .STK-MED ONE Sodium Chloride Confirm 06/12/21 04:21 Sodium Chloride 0.9% 1000 Ml Administered 06/12/21 04:22 Dose 1,000 mls @ ud .ROUTE .STK-MED ONE Ceftriaxone Sodium/Dextrose 1 g in 50 mls @ 100 mls/hr 06/13/21 10:00 06/14/21 08:55 Rocephin 1 Gm-D5w 50 Ml Bag IV 06/16/21 09:59 100 mls/hr Q24H10 PHAN Administration Lisinopril 20 mg 06/12/21 12:00 06/14/21 08:55 Lisinopril 20 Mg Tablet PO 07/12/21 11:59 20 mg DAILY PHAN Administration Lorazepam 1 mg 06/13/21 14:31 06/13/21 14:51 Lorazepam 1 Mg Tablet PO 07/13/21 14:30 1 mg Q6H PRN PRN Administration ANXIETY Miscellaneous Information 1 each 06/12/21 12:00 Medication Intervention 1 Each Each PO 07/12/21 11:59 .RN TO CHECK ON PHAN Morphine Sulfate 2 mg 06/12/21 08:02 06/14/21 12:54 Morphine Sulfate 2 Mg/Ml Inj IV 06/17/21 08:01 2 mg Q4H PRN PRN Administration PAIN Ondansetron HCl 4 mg 06/12/21 08:02 Ondansetron Hcl 4 Mg/2 Ml Vial IV 07/12/21 08:01 Q6H PRN PRN NAUSEA/VOMITING Senna 8.6 mg 06/12/21 22:00 06/13/21 14:53 Senna 8.6 Mg Tablet PO 07/12/21 21:59 8.6 mg HS PHAN Administration Intake & Output (Last 24 hours) 06/12/21 06/13/21 06/14/21 06/15/21 11:59 11:59 11:59 11:59 Intake Total 960 960 240 Output Total 750 1550 1250 Balance -750 -590 -290 240 Weight 64.6 kg Microbiology Results (Last 24 hours) 06/12/21 04:58 Urine, Catheterized Urine Culture - Final Escherichia Coli Orders (Last 24 hours) Category Date Time Status Discharge Routine Discharge 06/14/21 Ordered Discharge/Telephone Order Routine Discharge 06/14/21 Active Patient Care Notes (Last 24 hours) 06/14/21 15:33 Nursing Note by Meri Moss SPOKE WITH DR. SCHROEDER. DISCHARGE PATIENT [facility]DC TODAY. RESUME HOME MEDICATIONS. START PATIENT ON PO ANTIBIOTICS. Initialized on 06/14/21 15:33 - END OF NOTE 06/14/21 15:19 Nursing Note by Elinor Brown Called Ovidio, patient's family member to let her know [facility] would take the patient today Initialized on 06/14/21 15:19 - END OF NOTE 06/14/21 13:48 Case Management Note by Franci Oliveira PHONED KAYLEE QUICK AGAIN, STATES NO WORK FROM [employer] ON PATIENT INSURANCE AVAILIBLE DAYS, TOLD THEM TO PLEASE CALL AND ASK FOR MECHANICAL ENGINEERING DRAFTSPERSON ONCE THEY RECEIVE WORD, PATIENT HAS TO BE DISCHARGED TODAY. PHONED HERSON MAURER AND TALKED WITH HER ABOUT THIS AND PLAN, STATES SHE CALLED THEM WELL, SHE WILL BE LEAVING HER OFFICE SOON TO CALL HER ON HER CELL PHONE [phone] ONCE WE GET A DECISION FROM [facility]. Initialized on 06/14/21 13:48 - END OF NOTE 06/14/21 12:11 Case Management Note by Franci Oliveira DR HERE TO SEE PATIENT. ASKS ABOUT STATUS OF REHAB. STATE [facility] WAS LOOKING INTO PATIENT LONG TERM DAYS WITH INSURANCE AND THEY ARE SAPOSE TO PHONE THIS NURSE BACK. FAMILY IS ALSO AWARE OF THIS, AND IF PATIENT HAS NO DAYS LEFT PER NURSING THEN THEY WILL TAKE HER HOME WITH CURRENT SET UP AT HOME. PHONED [facility] UPDATED THAT DR SCHROEDER WANTS PATIENT D/C'D TODAY, STATES SHE SENT INFORMATION TO [employer] TO INVESTIGATE AVAILABLE INSURANCE DAYS AND WILL GET BACK TOMAgatha SANDHU. Initialized on 06/14/21 12:11 - END OF NOTE 06/14/21 08:58 Case Management Note by Franci Oliveira PHONED [facility] [place] YESTERDAY MULTIPLE TIMES WITH NO ANSWER. PHONED THIS AM, THEY STATE THEY BELIEVE PATIENT IS OUT OF SKILLED DAYS WITH INSURANCE AND IF SHE COMES TO THEM IT WILL BE PRIVATE PAY, BUT THEY WILL RUN INSURANCE AGAIN TO SEE AND PHONE CASE MANAGEMENT BACK. DISCUSSED WITH PRIMARY RN, ELINOR, WHO STATES IF FAMILY PHONES SHE WILL UPDATE THEM. Initialized on 06/14/21 08:58 - END OF NOTE 06/14/21 06:34 Nursing Note by Corry Macias PT HAS BEEN RESTLESS ALL NIGHT, SHE IS CALM AT THIS TIME, SHE IS FOLDING HER BED LINENS AND THAT SEEMS TO KEEP HER CALM. ARAMIS CAPPS HAS BEEN AT BEDSIDE ALL NIGH T. WILL CONTINUE TO MONITOR. Initialized on 06/14/21 06:34 - END OF NOTE 06/14/21 03:19 Nursing Note by Corry Macias PT HAS BEEN AGITATED, COMATIVE AT TIMES, CRYING, AND YELLING OUT ALL THROUGH THE NIGHT. JEFRY SELF HAS ASSISTED THE PATIENT BY SITTING WITH HER TRYING TO KEEP HER CALM. WILL CONTINUE TO MONITOR. Initialized on 06/14/21 03:19 - END OF NOTE 06/14/21 01:33 Nursing Note by Corry Macias PT TRIED TO GET OUT OF BED, AND BECAME AGITATED WHEN TRYING TO PUT HER BACK IN BED, GAVE HER A DOSE OF MORPHINE AND WAS ABLE TO GET HER BACK TO BED AND CALMED DOWN. WILL CONTINUE TO MONITOR. Initialized on 06/14/21 01:33 - END OF NOTE - Vitals & Intake/Output Vital Signs: Vital Signs Temperature 97.6 F 06/14/21 15:00 Pulse Rate 64 06/14/21 15:00 Respiratory Rate 16 06/14/21 15:00 Blood Pressure 123/53 06/14/21 15:00 O2 Sat by Pulse Oximetry 99 06/14/21 15:00 Intake & Output: Intake & Output 06/12/21 06/13/21 06/14/21 06/15/21 11:59 11:59 11:59 11:59 Intake Total 960 960 240 Output Total 750 1550 1250 Balance -750 -590 -290 240 Weight 64.6 kg - Lab Result Diagrams: 06/13/21 05:40 06/13/21 05:40 Micro Results-Entire Visit: Microbiology 06/12/21 04:58 Urine Culture - Final Urine, Catheterized Escherichia Coli - Radiology Exams Ordered Rad Exams-Entire Visit: Radiology Procedures Category Date Time Status CHEST 1 VIEW (PORTABLE) Urgent Exams 06/13/21 12:46 Completed Discharge Exam General Appearance: no apparent distress, alert Neurologic Exam: alert, oriented x 3, cooperative, normal mood/affect, nml cerebellar function, sensation nml, No motor deficits Eye Exam: PERRL, EOMI, eyes nml inspection Ears, Nose, Throat Exam: normal ENT inspection, pharynx normal, moist mucous membranes Neck Exam: normal inspection, non-tender, supple, full range of motion Respiratory Exam: normal breath sounds, lungs clear, No respiratory distress Cardiovascular Exam: regular rate/rhythm, normal heart sounds Gastrointestinal/Abdomen Exam: soft, No tenderness, No mass Pelvic Exam: deferred Rectal Exam: deferred Back Exam: normal inspection, normal range of motion, No CVA tenderness, No vertebral tenderness Extremity Exam: normal inspection, normal range of motion Skin Exam: normal color, warm, dry Final Diagnosis/Problem List - Final Discharge Diagnosis/Problem (1) UTI (urinary tract infection) Status: Resolved Code(s): N39.0 - URINARY TRACT INFECTION, SITE NOT SPECIFIED (2) Lewy body dementia with behavioral disturbance Status: Acute Code(s): G31.83 - DEMENTIA WITH LEWY BODIES; F02.81 - DEMENTIA IN OTH DISEASES CLASSD ELSWHR W BEHAVIORAL DISTURB (3) Combative behavior Status: Acute Code(s): R46.89 - OTHER SYMPTOMS AND SIGNS INVOLVING APPEARANCE AND BEHAVIOR - Discharge Discharge Date: 06/14/21 Disposition: Skilled Care @ [facility] Condition: Stable Prescriptions: New levoFLOXacin [Levofloxacin] 250 mg PO DAILY 5 Days #5 tablet Continue Sennosides [Senna] 8.6 mg PO HS Amlodipine Besylate [Norvasc] 10 mg PO DAILY Lisinopril 20 mg [Zestril 20 MG] 20 mg PO DAILY Cyanocobalamin (Vitamin B-12) [Vitamin B-12] 1,000 mcg PO DAILY Docusate Sodium [Colace] 100 mg PO BID Acetaminophen 325 mg [Tylenol 325 mg] 650 mg PO Q4H PRN PRN PRN Reason: Pain And/Or Fever Amantadine HCl [Amantadine] 100 mg PO BID #60 tablet Additional Instructions: [facility] ORDERS REGULAR DIET PT/OT EVAL AND TREAT SEE ATTACHED MEDICATION LIST Follow up with: KING SCHROEDER MD [Primary Care Provider] - 06/21/21 11:00 am
== END 2021-06-14 16:05 ==
LOC: ED 03:05 → ICU 07:40
PROVIDERS: ADMIT General Practice; ATTEND General Practice
DX: N39.0 Urinary tract infection, site not specified (principal); G31.83 Neurocognitive disorder with Lewy bodies; F02.81 Dementia in other diseases classified elsewhere, unspecified severity, with behavioral disturbance; I10 Essential (primary) hypertension; Z79.899 Other long term (current) drug therapy; Z87.820 Personal history of traumatic brain injury; Z20.828 Contact with and (suspected) exposure to other viral communicable diseases; Z91.14 Patient's other noncompliance with medication regimen
CPT/HCPCS: 0241U; 36000; 36415; 70450; 71045; 80053; 81001; 84484; 85025; 87077; 87086; 87186; 93005; 99284; 93268; G0378; J0696; J2270; A9270-GY